=== PATIENT | female | born 1945 | race Caucasian/White ===

== ENCOUNTER 2019-01-25 15:01 | Observation (INO) | payer OTHER ==
[~2019-01-25] VITALS: Ht 160 cm; Wt 92.0 kg
[~2019-01-25 15:01] MED LIST: ACETAMINOPHEN500 MG PO; ALBU90OI61 INH; ALPR.25 PO; ALPR.5 PO; ALPR1 PO; ANORO ELLIPTA1 EACH INH; ASPI325; ASPI325EC PO; ASPI81CH PO; ATOR80 PO; Ativan0.5 MG PO; BACL10 PO; BENADRYL25 MG PO; BENZ100A PO; BUSP15 PO; Bactrim Ds Tab1 EACH PO; CARB200 PO; CARI350 PO; CLON1 PO; CLOP75 PO; Coumadin5 MG PO; DIAZEPAM; DULO60 PO; ERYSTE250 PO; FAMO20 PO; FAMO40 PO; FERRO-TIME325 MG PO; FLUO20; FLUO20 PO; FURO40 PO; HYDACE5 PO; IMODIUM MULTI-1 EAC1 PO; LISI5 PO; LOVASTATIN; METO25 PO; NAC600 MG PO; NITR.4SL SL; OMEP20ER PO; ONDA4 PO; OXYC10TA19 PO; Omeprazole20 M1 PO; PARI1 PO; Prozac20 MG; Prozac20 MG PO; QUET300 PO; RANI150 PO; ROSU10TA PO; SENN187 PO; TRAM50 PO; TRAZ100; TRAZ100 PO; TRAZ150T57 PO; Tamiflu30 MG PO; VITAMIN D22000 UNIT PO
[2019-01-25 15:43] LABS: Source, Urine Clean Catch
[2019-01-25 15:52] LABS: Appearance, Urine Hazy (Clear); Bilirubin, Urine Neg (Neg); Blood, Urine 1+ (Neg); Color, Urine Yellow (P-Yellow); Glucose Qualitative, Urine Neg (Neg); Ketones, Urine Neg (Neg); Leukocyte Esterase, Urine 3+ (Neg); Nitrite, Urine Pos (Neg); Protein, Urine 1+ (Neg); Specific Gravity, Urine 1.015 (1.003-1.022); Urobilinogen, Urine NORM (Normal)
[2019-01-25 16:13] LABS: U Amphetamine Screen Not Detected; U Barbituate Screen Not Detected; U Benzodiazapine Screen DETECTED; U Buprenorphine Screen Not Detected; U Cannabinoids Screen Not Detected; U Cocaine Screen Not Detected; U Methadone Screen Not Detected; U Methamphetamine Screen Not Detected; U Opiates Screen Not Detected; U Oxycodone Screen Not Detected; U Phencyclidine Screen Not Detected; U Propoxyphene Screen Not Detected
[2019-01-25 16:24] LABS: BASOPHILS ABSOLUTE AUTO 0.01 K/mm3 (0.00-0.23); BASOPHILS PERCENT AUTO 0 % (0-2); EOSINOPHILS ABSOLUTE AUTO 0.07 K/mm3 (0.00-0.68); EOSINOPHILS PERCENT AUTO 1 % (0-6); Hematocrit 38.3 % (33.0-51.0); Hemoglobin 11.7 g/dL (11.5-16.0); IMMATURE GRAN ABSOLUTE AUTO 0.01 K/mm3 (0.00-0.10); IMMATURE GRAN PERCENT AUTO 0 % (0-1); LYMPHOCYTES ABSOLUTE AUTO 1.21 K/mm3 (0.84-5.20); LYMPHOCYTES PERCENT AUTO 19 % (21-46); MONOCYTES ABSOLUTE AUTO 0.37 K/mm3 (0.16-1.47); MONOCYTES PERCENT AUTO 6 % (4-13); Mean Corpuscular HGB 27.9 pg (26.0-34.0); Mean Corpuscular HGB Conc 30.5 g/dL (31.5-36.5); Mean Corpuscular Volume 91 fL (80-100); Mean Platelet Volume 9.7 fL (9.1-12.4); NEUTROPHILS ABSOLUTE AUTO 4.73 K/mm3 (1.96-9.15); NEUTROPHILS PERCENT AUTO 74 % (41-73); Platelet Count 177 K/mm3 (150-400); RDW Coefficient Variation 13.4 % (11.7-14.2); RDW Standard Deviation 45.1 fL (35.1-46.3)
[2019-01-25 16:29] LABS: Bacteria Many /hpf; Squamous Epithelial Cells Few /hpf (Few); White Blood Cells, Urine 25-50 /hpf (0-5)
[2019-01-25 16:36] LABS: Alanine Aminotransfer (ALT/SGP 32 U/L (12-78); Albumin, Blood 3.5 g/dL (3.4-5.0); Albumin/Globulin Ratio 1.1 (0.8-1.8); Alk Phos 99 U/L (50-136); Anion Gap 4 mmol/L (6-16); Aspartate Aminotrans (AST/SGOT 25 U/L (12-37); Bilirubin, Total 0.4 mg/dL (0.1-1.0); Blood Urea Nitrogen 14 mg/dL (8-24); Bun/Creatinine Ratio 12.8 (12.0-20.0); CO2, Blood 31 mmol/L (21-32); CPK Creatine Kinase 200 U/L (26-193); Calcium, Blood 9.3 mg/dL (8.5-10.1); Chloride, Blood 108 mmol/L (98-108); Creatinine, Blood 1.09 mg/dL (0.40-1.00); Globulin, Blood 3.1 g/dL (2.2-4.0); Glomerular Filtration Rate 52 (60-); Glucose, Blood 87 mg/dL (70-99); Potassium, Blood 4.2 mmol/L (3.5-5.5); Sodium, Blood 143 mmol/L (136-145); Total Protein, Blood 6.6 g/dL (6.4-8.2); Troponin I <0.015 ng/mL (0.000-0.040)
[2019-01-25 16:40] LABS: Ethanol (Alcohol), Blood, Med <3 mg/dL
[2019-01-25 16:52] LABS: Creatine Kinase MB 3.5 ng/mL (0.0-3.6); Creatine Kinase MB Index 1.8 (0.0-4.0)
[2019-01-25] MEDS ORDERED: VENL150ER PO (19:21)
[2019-01-25] MEDS ORDERED: ATOR80 PO (19:21)
[2019-01-25] MEDS ORDERED: Ipratropium Bro15 ML (19:22)
[2019-01-25] MEDS ORDERED: ALPR1 PO (19:23)
--- NOTE | 2019-01-26 04:21 | NUR ---
VSS, AFEBRILE, A/O BUT SOMULENT AT TIMES, ARRIVED TO THE UNIT VIA W/C FROM ED, FOUND DOWN AT HOME BY NEIGHBOR, S/P FALL AT HOME, UTI, 20G R HAND, 1 PA TO BSC BECAUSE OF WEAKNESS, LIVES ALONE, NO SKIN ISSUES, SLEPT WELL, NO COMPLAINTS
[2019-01-26 05:15] LABS: Hematocrit 34.2 % (33.0-51.0); Mean Corpuscular HGB 27.5 pg (26.0-34.0); Mean Corpuscular HGB Conc 29.2 g/dL (31.5-36.5); Mean Platelet Volume 9.5 fL (9.1-12.4); Platelet Count 170 K/mm3 (150-400); RDW Coefficient Variation 13.6 % (11.7-14.2); RDW Standard Deviation 47.1 fL (35.1-46.3); Red Blood Cell Count 3.64 M/mm3 (3.80-5.20); White Blood Cell Count 4.02 K/mm3 (4.00-11.30)
[2019-01-26 05:36] LABS: Mean Corpuscular Volume 94 fL (80-100)
[2019-01-26 05:45] LABS: Bun/Creatinine Ratio 10.3 (12.0-20.0); Calcium, Blood 8.6 mg/dL (8.5-10.1); Creatinine, Blood 1.17 mg/dL (0.40-1.00); Potassium, Blood 3.6 mmol/L (3.5-5.5)
--- NOTE | 2019-01-26 12:40 | NUR ---
Echocardiogram completed.
--- NOTE | 2019-01-26 19:27 | NUR ---
SHIFT SUMMARY PT UP TO BATHROOM WITH FWW WITH 1 PERSON ASSIST TODAY. HAD AN EPISODE OF LOOSE STOOL. HAPPENED AFTER MIRALAX GIVEN. HAD A FEW EPISODES OF ANXIETY BUT WAS SELF RESOLVING. TOOK A NAP TODAY AND WOKE UP AND COULDN'T REMEMBER WHAT WAS HAPPENING AND THOUGHT IT WAS MORNING. REORIENTED AND DISCUSSED WHAT HAS BEEN HAPPENING. IV STARTED LEAKING AND MULTIPLE ATTEMPTS HAVE BEEN MADE. REPORTING TO ONCOMING SHIFT.
--- NOTE | 2019-01-27 05:21 | NUR ---
VSS, AFEBRILE, A/O, NEW IV IN L FA, PT HAD SEVERAL ATTEMPTS TO START A NEW IV ON DAY SHIFT W/OUT SUCCESS. THIS LEFT HER ANXIOUS, MEDICATED PER ORDER, PT CONTINUED TO BE ANXIOUS MOST OF THE NOC, DID NOT SLEEP WELL, C/O VAGUE FEELINGS OF ABANDONMENT AND NOT BEING GIVEN CORRECT MEDICATION, PT DENIES FAMILY OR FRIENDS TO SUPPORT HER. PT TEACHING ABOUT MEDICATIONS DONE MULTIPLE TIMES OVER THE NOC AT HER REQUEST, MIGHT BE LONELY.
--- NOTE | 2019-01-27 11:15 | NUR ---
NOTIFIED DR. PRATHER PT'S BP THIS AM WAS 186/76 AND HER BP IS 172/99 ABOUT AN HOUR AFTER HER AM MEDS. NO NEW ORDERS AT THIS TIME.
[2019-01-27] MEDS ORDERED: CEFU500T30 PO (11:57)
--- NOTE | 2019-01-27 15:50 | NUR ---
D/C INSTRUCTIONS PROVIDED AND EXPLAINED. IV AND TELE REMOVED. PT D/C VIA WHEELCHAIR WITH FRIENDS AND ROCK MASON APPRENTICE AT 1530 .
== END 2019-01-27 15:34 | disposition home health service (06) ==
LOC: ER 15:01 → MEDS 15:02 → ENPENDDIS 01-27 09:00 → MEDS 01-27 15:34
PROVIDERS: Physician Assistant; ADMIT Internal Medicine
DX: R55 Syncope and collapse (principal); I12.9 Hypertensive chronic kidney disease with stage 1 through stage 4 chronic kidney disease, or unspecified chronic kidney disease; N18.3 Chronic kidney disease, stage 3 (moderate); D63.1 Anemia in chronic kidney disease; N39.0 Urinary tract infection, site not specified; B96.20 Unspecified Escherichia coli [E. coli] as the cause of diseases classified elsewhere; I73.9 Peripheral vascular disease, unspecified; I65.23 Occlusion and stenosis of bilateral carotid arteries; I70.8 Atherosclerosis of other arteries; I25.10 Atherosclerotic heart disease of native coronary artery without angina pectoris; G31.84 Mild cognitive impairment of uncertain or unknown etiology; F41.9 Anxiety disorder, unspecified; F32.9 Major depressive disorder, single episode, unspecified; K21.9 Gastro-esophageal reflux disease without esophagitis; J44.9 Chronic obstructive pulmonary disease, unspecified; Z86.73 Personal history of transient ischemic attack (TIA), and cerebral infarction without residual deficits; E66.9 Obesity, unspecified; Z88.8 Allergy status to other drugs, medicaments and biological substances; Z88.0 Allergy status to penicillin; Z88.5 Allergy status to narcotic agent; Z79.899 Other long term (current) drug therapy; Z79.82 Long term (current) use of aspirin; Z87.891 Personal history of nicotine dependence; Z98.890 Other specified postprocedural states; Z85.118 Personal history of other malignant neoplasm of bronchus and lung; Z90.2 Acquired absence of lung [part of]; W18.30XA Fall on same level, unspecified, initial encounter
CPT/HCPCS: 36415; 70450; 71046; 72125; 73502; 80048; 80053; 81001; 82550; 82553; 84484; 85025; 85027; 87077; 87086; 87186; 93005; 93010; 93306; 93880; 96361; 96365; 96366; 96372; 97116; 97162; 97166; 97530; 97535; 99285-25; G0378; G0480; J0696; J1650; J7030; P9612

== ENCOUNTER → 2019-02-10 | Outpatient (CLI) | payer OTHER ==
[~2019-02-10] MED LIST changes: +CEFU500T30 PO; +Ipratropium Bro15 ML; +VENL150ER PO
[2019-02-10 19:29] LABS: Bilirubin, Urine Neg (Neg); Blood, Urine Neg (Neg); Glucose Qualitative, Urine Neg (Neg); Ketones, Urine Neg (Neg); Leukocyte Esterase, Urine 1+ (Neg); Nitrite, Urine Neg (Neg); Protein, Urine 1+ (Neg); Urobilinogen, Urine NORM (Normal)
[2019-02-10 20:01] LABS: Appearance, Urine Hazy (Clear); Color, Urine Yellow (P-Yellow)
[2019-02-10 20:07] LABS: Bacteria Few /hpf; Squamous Epithelial Cells Few /hpf (Few)
== END | disposition home or self-care (01) ==
LOC: LAB SHORT 19:13 → LAB 19:13
DX: N39.0 Urinary tract infection, site not specified (principal)
CPT/HCPCS: 81001; 87086

== ENCOUNTER 2019-05-11 16:09 | Emergency (ER) | payer OTHER ==
[~2019-05-11] VITALS: Ht 160 cm; Wt 90.7 kg
[~2019-05-11 16:09] MED LIST changes: -ANORO ELLIPTA1 EACH INH; -Omeprazole20 M1 PO
[2019-05-11 16:58] LABS: BASOPHILS ABSOLUTE AUTO 0.01 K/mm3 (0.00-0.23); BASOPHILS PERCENT AUTO 0 % (0-2); EOSINOPHILS ABSOLUTE AUTO 0.16 K/mm3 (0.00-0.68); EOSINOPHILS PERCENT AUTO 3 % (0-6); Hemoglobin 12.1 g/dL (11.5-16.0); IMMATURE GRAN ABSOLUTE AUTO 0.02 K/mm3 (0.00-0.10); IMMATURE GRAN PERCENT AUTO 0 % (0-1); LYMPHOCYTES ABSOLUTE AUTO 1.45 K/mm3 (0.84-5.20); LYMPHOCYTES PERCENT AUTO 28 % (21-46); MONOCYTES ABSOLUTE AUTO 0.33 K/mm3 (0.16-1.47); MONOCYTES PERCENT AUTO 6 % (4-13); Mean Corpuscular Volume 87 fL (80-100); Mean Platelet Volume 9.6 fL (9.1-12.4); NEUTROPHILS ABSOLUTE AUTO 3.31 K/mm3 (1.96-9.15); NEUTROPHILS PERCENT AUTO 63 % (41-73); Platelet Count 259 K/mm3 (150-400); RDW Coefficient Variation 13.7 % (11.7-14.2); RDW Standard Deviation 43.6 fL (35.1-46.3); Red Blood Cell Count 4.48 M/mm3 (3.80-5.20); White Blood Cell Count 5.28 K/mm3 (4.00-11.30)
[2019-05-11 17:17] LABS: Albumin, Blood 4.2 g/dL (3.4-5.0); Albumin/Globulin Ratio 1.4 (0.8-1.8); Bilirubin, Total 0.4 mg/dL (0.1-1.0); Bun/Creatinine Ratio 20.3 (12.0-20.0); Creatinine, Blood 1.23 mg/dL (0.40-1.00); Globulin, Blood 3.1 g/dL (2.2-4.0); Potassium, Blood 4.1 mmol/L (3.5-5.5); Total Protein, Blood 7.3 g/dL (6.4-8.2)
[2019-05-11] MEDS ORDERED: CETI5 PO (19:57)
[2019-05-11] MEDS ORDERED: ROSU10TA PO (19:59)
[2019-05-11] MEDS ORDERED: CYCL10 PO (23:32)
[2019-05-11] MEDS ORDERED: Voltaren100 GM TOP (23:32)
[2019-05-11] MEDS ORDERED: Roxicodone5 MG PO (23:32)
== END 2019-05-12 00:30 | disposition home or self-care (01) ==
LOC: ER 16:09
PROVIDERS: Physician Assistant
DX: M54.2 Cervicalgia (principal); Z88.0 Allergy status to penicillin; Z88.5 Allergy status to narcotic agent; Z88.8 Allergy status to other drugs, medicaments and biological substances; Z79.899 Other long term (current) drug therapy; Z79.52 Long term (current) use of systemic steroids; J44.9 Chronic obstructive pulmonary disease, unspecified; F41.9 Anxiety disorder, unspecified; Z86.73 Personal history of transient ischemic attack (TIA), and cerebral infarction without residual deficits; Z87.891 Personal history of nicotine dependence; Z85.118 Personal history of other malignant neoplasm of bronchus and lung
CPT/HCPCS: 36415; 70498; 80053; 85025; 93005; 93010; 94640; 96361-59; 96374-59; 96375-59; 99284-25; A9270; J1170; J3010; J7030; Q9967

== ENCOUNTER 2019-06-26 20:37 | Observation (INO) | payer OTHER ==
[~2019-06-26] VITALS: Ht 170.2 cm; Wt 91.9 kg
[~2019-06-26 20:37] MED LIST changes: +CETI5 PO; +CYCL10 PO; +Roxicodone5 MG PO; +Voltaren100 GM TOP
[2019-06-26] MEDS ORDERED: MONT10T PO (21:14)
[2019-06-26] MEDS ORDERED: Omeprazole20 M1 PO (21:14)
[2019-06-26] MEDS ORDERED: ANORO ELLIPTA1 EACH INH ×2 (21:15→23:34)
[2019-06-26] MEDS ORDERED: ALBU2.5V5 NEB (21:15)
[2019-06-26 21:16] LABS: BASOPHILS ABSOLUTE AUTO 0.02 K/mm3 (0.00-0.23); BASOPHILS PERCENT AUTO 0 % (0-2); EOSINOPHILS ABSOLUTE AUTO 0.13 K/mm3 (0.00-0.68); EOSINOPHILS PERCENT AUTO 2 % (0-6); Hematocrit 39.1 % (33.0-51.0); Hemoglobin 12.4 g/dL (11.5-16.0); IMMATURE GRAN ABSOLUTE AUTO 0.03 K/mm3 (0.00-0.10); IMMATURE GRAN PERCENT AUTO 0 % (0-1); LYMPHOCYTES ABSOLUTE AUTO 1.28 K/mm3 (0.84-5.20); LYMPHOCYTES PERCENT AUTO 17 % (21-46); MONOCYTES ABSOLUTE AUTO 0.54 K/mm3 (0.16-1.47); MONOCYTES PERCENT AUTO 7 % (4-13); Mean Corpuscular HGB 27.8 pg (26.0-34.0); Mean Corpuscular HGB Conc 31.7 g/dL (31.5-36.5); Mean Corpuscular Volume 88 fL (80-100); NEUTROPHILS ABSOLUTE AUTO 5.54 K/mm3 (1.96-9.15); NEUTROPHILS PERCENT AUTO 73 % (41-73); Platelet Count 211 K/mm3 (150-400); RDW Coefficient Variation 13.9 % (11.7-14.2); RDW Standard Deviation 44.8 fL (35.1-46.3); Red Blood Cell Count 4.46 M/mm3 (3.80-5.20); White Blood Cell Count 7.54 K/mm3 (4.00-11.30)
[2019-06-26] MEDS ORDERED: CLOP75 PO (21:17)
[2019-06-26] MEDS ORDERED: ALBU90OI61 INH (21:17)
[2019-06-26] MEDS ORDERED: ALPR.25 PO (21:18)
[2019-06-26] MEDS ORDERED: ALPR.5 PO (21:20)
[2019-06-26] MEDS ORDERED: PARI1 PO (21:21)
[2019-06-26] MEDS ORDERED: CYCL0.05OP BOTHEYES (21:22)
[2019-06-26] MEDS ORDERED: PRED FORTE5 ML BOTHEYES (21:23)
[2019-06-26] MEDS ORDERED: OLOPATADINE HC2.5 ML BOTHEYES (21:24)
[2019-06-26] MEDS ORDERED: ROSUVASTATIN CA20 MG PO (21:25)
[2019-06-26] MEDS ORDERED: Ipratropium Bro15 ML (21:27)
[2019-06-26 21:29] LABS: Troponin I <0.015 ng/mL (0.000-0.040)
[2019-06-26 21:52] LABS: Alanine Aminotransfer (ALT/SGP 30 U/L (12-78); Albumin, Blood 3.7 g/dL (3.4-5.0); Albumin/Globulin Ratio 1.2 (0.8-1.8); Alk Phos 100 U/L (50-136); Anion Gap 8 mmol/L (6-16); Aspartate Aminotrans (AST/SGOT 17 U/L (12-37); Bilirubin, Total 0.4 mg/dL (0.1-1.0); Blood Urea Nitrogen 26 mg/dL (8-24); Bun/Creatinine Ratio 20.5 (12.0-20.0); CO2, Blood 23 mmol/L (21-32); Calcium, Blood 9.2 mg/dL (8.5-10.1); Chloride, Blood 109 mmol/L (98-108); Creatinine, Blood 1.27 mg/dL (0.40-1.00); Glomerular Filtration Rate 43 (60-); Glucose, Blood 137 mg/dL (70-99); Potassium, Blood 4.1 mmol/L (3.5-5.5); Sodium, Blood 140 mmol/L (136-145); Total Protein, Blood 6.7 g/dL (6.4-8.2)
[2019-06-26] MEDS ORDERED: LORATADINE-D 11 EACH PO (21:52)
[2019-06-26] MEDS ORDERED: CLARITIN10 MG PO (23:45)
--- NOTE | 2019-06-27 | NUR ---
ADMISSION PT ARRIVES TO PCU 5 @ APPROXIMATELY 2320. PT IS AOX4. VSS. AMBULATES FROM ER STRETCHER TO HOSPITAL BED WITH STANDBY ASSIST. LUNG SOUNDS ARE CLEAR IN UPPER LOBES WITH SLIGHTLY DIMINISHED BASES. O2 SATS CURRENTLY 95% ON RA. PT REPORTING MILD DYSPNEA, BUT REPORTS SIGNIFICANT IMPROVEMENT FROM EARLIER IN THE EVENING. CARDIZEM DRIP INFUSING AT 5 MG/HR UPON ARRIVAL. PT IS CURRENTLY IN NORMAL SINUS RHYTHM WITH RATE OF 88 PER TELEMETRY. SOLE RUFFER SPOKE WITH PHYSICIAN ABOUT CONVERSION AND VERBAL INSTRUCTIONS WERE TO CONTINUE CARDIZEM DRIP PER PROTOCOL UPON ADMISSION. PT APPEARS TO BE MILDLY ANXIOUS UPON ARRIVAL. REPORTS THAT SHE LIVES IN AN APARTMENT ALONE AND IS ABLE TO CARE FOR HERSELF WITHOUT DIFFICULTY. PT ORIENTED TO ROOM AND CALL LIGHT SYSTEM AND ENCOURAGED TO CALL FOR ASSISTANCE WITH AMBULATION AND CARE. PT EDUCATED ON CURRENT ILLNESS AND NEW MEDICATIONS SHE IS RECEIVING FOR CURRENT CONDITION. WILL CONTINUE WITH ADMISSION AND MONITORING. BED IN LOW POSIITION, CALL LIGHT IN REACH.
[2019-06-27 00:43] LABS: Source, Urine Clean Catch
[2019-06-27 00:46] LABS: Appearance, Urine Clear (Clear); Bilirubin, Urine Neg (Neg); Blood, Urine Neg (Neg); Color, Urine Yellow (P-Yellow); Glucose Qualitative, Urine Neg (Neg); Ketones, Urine Neg (Neg); Leukocyte Esterase, Urine 1+ (Neg); Nitrite, Urine Neg (Neg); Protein, Urine Neg (Neg); Specific Gravity, Urine 1.015 (1.003-1.022); Urobilinogen, Urine NORM (Normal); pH, Urine 6.5 (5.0-8.0)
[2019-06-27 00:53] LABS: Bacteria Mod /hpf; Red Blood Cells, Urine 0-2 /hpf (0-2); Squamous Epithelial Cells Rare /hpf (Few)
[2019-06-27 04:31] LABS: Hematocrit 39.1 % (33.0-51.0); Hemoglobin 12.3 g/dL (11.5-16.0); Mean Corpuscular HGB 27.5 pg (26.0-34.0); Mean Corpuscular HGB Conc 31.5 g/dL (31.5-36.5); Mean Corpuscular Volume 87 fL (80-100); Mean Platelet Volume 10.7 fL (9.1-12.4); Platelet Count 176 K/mm3 (150-400); RDW Coefficient Variation 14.2 % (11.7-14.2); RDW Standard Deviation 45.1 fL (35.1-46.3); Red Blood Cell Count 4.48 M/mm3 (3.80-5.20); White Blood Cell Count 6.21 K/mm3 (4.00-11.30)
[2019-06-27 05:02] LABS: Albumin, Blood 3.6 g/dL (3.4-5.0); Albumin/Globulin Ratio 1.1 (0.8-1.8); Bilirubin, Total 0.7 mg/dL (0.1-1.0); Calcium, Blood 8.8 mg/dL (8.5-10.1); Creatinine, Blood 1.09 mg/dL (0.40-1.00); Globulin, Blood 3.4 g/dL (2.2-4.0)
--- NOTE | 2019-06-27 05:17 | NUR ---
PROVIDER CONTACTED PT WITH CRITICAL HIGH POTASSIUM THIS AM OF 6.0. DR SERVIN CONTACTED AND REPORTS THAT HE WILL LOOK AT LABS AND INPUT ORDERS.
--- NOTE | 2019-06-27 06:10 | NUR ---
SHIFT SUMMARY PT HAS REMAINED AOX4 THROUGHOUT SHIFT. VSS. PLEASANT AND COOPERATIVE WITH CARE. CARDIAC RHYTHM HAS REMAINED IN NORMAL SINUS SINCE CONVERSION LAST NIGHT PRIOR TO ARRIVAL IN PCU. CARDIZEM DRIP HAS REMAINED ON STTANDBY SINCE 0130 THIS AM. PT DENIES CHEST PAIN. REPORTS SOME DYSPNEA, THAT REMAINS IMPROVED SINCE CARDIAC CONVERSION. O2 SATS HAVE REMAINED >90% ON RA THROUGHOUT THE NIGHT. PT WITH CRITICALLY HIGH POTASSIUM THIS AM- TREATED WITH GLUCOSE, IV INSULIN AND CALCIUM GLUCONATE- REPEAT LAB TO BE DRAWN @ 0900 THIS AM. PT CONTINUES TO AMBULATE WITH STANDBY ASSIST IN ROOM WITHOUT DIFFICULTY. NO OTHER CHANGES NOTED FROM INITIAL ASSESSMENT. WILL CONTINUE TO MONITOR AND REPORT TO ONCOMING SHIFT RN. BED IN LOW POSITION, CALL LIGHT IN REACH.
--- NOTE | 2019-06-27 07:45 | NUR ---
AM NOTE. ASSUMED CARE OF PT APROX 0700. PT A&Ox4 AND IND/SBA IN THE ROOM. PT WAS ADMITTED FOR AFIB RVR BUT IS CURRENTLY IN NSR IN THE 70'S-80'S PER DYE RANGE FEEDER AND HAS BEEN SINCE ADMIT. PT DENIES ANY CHEST PAIN/PRESSURE, N/V BUT HAS SOB WITH ACTIVITY. PT'S OTHER VS STABLE AT THIS TIME. ECHO IS SCHEDULED FOR THIS AM. PT HAS HX OF PREVIOUS SENT PLACEMENTS 3 YEARS AGO PER PT. CALL LIGHT IN REACH, BED IS LOCKED AND LOW WILL CONTINUE TO MONITOR.
[2019-06-27 09:56] LABS: Bun/Creatinine Ratio 21.1 (12.0-20.0); Creatinine, Blood 0.99 mg/dL (0.40-1.00); Potassium, Blood 4.8 mmol/L (3.5-5.5)
--- NOTE | 2019-06-27 18:01 | NUR ---
SHIFT SUMMARY. NO ACUTE CHANGES NOTED THIS SHIFT. PT IS VERY ANXIOUS ABOUT D/C'ING HOME, PT STATES "I JUST DON'T FEEL GOOD." PT'S VS HAVE BEEN STABLE T/O SHIFT. PT HAS HAD SEVERAL EPISODES OF ANXIETY THAT HAS CAUSED PT TO BECOME SBO AND HAVE INCREASED ANXEITY. PT STATES SHE HAS CHEST PAIN WITH DEEP INSPIRATION DURING THESE EPISODES. PT HAS BEEN IN NSR ALL SHIFT WITH NO TELE CHANGES NOTED. PT HAS BEEN ON RA T/O SHIFT WITH O2 SAT >90% CALL LIGHT IN REACH, BED IS LOCKED AND LOW WILL CONTINUE TO MONITOR UNTIL REPORT IS GIVEN TO ONCOMING RN.
--- NOTE | 2019-06-28 | NUR ---
ASSUMED CARE PT CARE ASSUMED FROM EVERTON AVELAR @ APPROXIMATELY 0000. PT IS CURRENTLY RESTING IN BED QUIETLY WITH RESPIRATIONS EVEN AND UNLABORED. PT APPEARS TO BE SLEEPING WELL. CURRENT CARDIAC RHYTHM IS NORMAL SINUS WITH A RATE IN THE 90'S PER TELEMETRY. MOST RECENT VITAL SIGNS WITH 02 SATS >90% ON RA. WILL CONTINUE WITH MONITORING. BED IN LOW POSITION, CALL LIGHT IN REACH.
--- NOTE | 2019-06-28 00:19 | NUR ---
Assumed care of pt at approx 1900. VSS. pt breathing easy and unlabored. Pt conversing appropriately, alert and oriented, uses call light appropriately, makes needs known. Pt with moderate anxiety related to not knowing medications, this RN educated pt on all medications this RN gave. Pt verbalized understanding. See shift assessment for detailed systems assessment. No changes from initial assessment. Report given to EVERTON Osullivan to assume care at this time.
[2019-06-28 04:48] LABS: Bun/Creatinine Ratio 18.8 (12.0-20.0); Calcium, Blood 9.7 mg/dL (8.5-10.1); Creatinine, Blood 1.12 mg/dL (0.40-1.00); Potassium, Blood 4.2 mmol/L (3.5-5.5)
--- NOTE | 2019-06-28 05:00 | NUR ---
ANXIOUS EPISODE/EKG PERFORMED PT WITH PERIOD OF CHEST PAIN AND ANXIETY THIS AM WITH CARDIAC RHYTHM SHOWING FREQUENT PAC'S. PT REPORTS FEELING SOME FLUTTERING IN CHEST WITH PAIN IN CHEST THAT RADIATES TO ARM WITH PAIN LEVEL OF 5/10. PT DENIES CHEST PRESSURE OR HEAVINESS. EKG PERFORMED AND SHOWS SINUS RHYTHM WITH PAC'S AND A RATE OF 116. PT ENCOURAGED TO UTILIZE RELAXATION BREATHING TECHNIQUES THAT HELPED TO DECREASE ANXIETY. AFTER TWO MINUTES OF PURSED LIP BREATHING, PT REPORTS DECREASED PAIN AT A 2/10 WITH NO MORE RADIATION. HEART RATE DECREASED TO 103 AND NO FURTHER NOTED FREQUENT PAC'S ON TELEMETRY. PT REPORTS THAT SHE HAS HAD EPISODES LIKE THIS IN THE PAST. WILL CONTINUE TO MONITOR AND ASSESS.
--- NOTE | 2019-06-28 06:26 | NUR ---
SHIFT SUMMARY PT HAS REMAINED AOX4 THROUGHOUT SHIFT. VSS. PLEASANT AND COOPERATIVE WITH CARE. NO FURTHER NOTED PERIODS OF CHEST PAIN OR ANXIETY FROM EPISODE EARLIER THIS AM. O2 SATS HAVE REMAINED >90% ON RA. PT PROVIDED WITH EXTENSIVE EDUCATION ON CURRENT ILLNESS AND TREATMENTS BEING PROVIDED. PT REQUIRES FREQUENT REITERATION OF EDUCATION AND REASSURANCE OF HEALTH STATUS. PT IS CURRENTLY RESTING IN BED WITH EVEN, UNLABORED RESPIRATIONS AND APPEARS TO BE RESTING COMFORTABLY. NO OTHER CHANGES NOTED FROM INITIAL ASSESSMENT. WILL CONTINUE TO MONITOR AND REPORT TO ONCOMING SHIFT RN. BED IN LOW POSITION, CALL LIGHT IN REACH.
--- NOTE | 2019-06-28 07:59 | NUR ---
AM NOTE. ASSUMED CARE OF PT APROX 0700. PT IS A&Ox4 AND IND IN THE ROOM. PT'S HR AND BP HAS INCREASED OVER NIGHT, PT IS IN SINUS TACH WITH PACS. PT DENIES CHEST PAIN/PRESSURE AT THIS TIME. PT BECOMES VERY ANXIOUS WHEN TALKING ABOUT HER FATEMEH ISSUES, HEART RATE AND BP AT THIS TIME. 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 PT WILL MOST LIKELY D/C HOME TODAY. WILL CONTINUE TO MONITOR.
[2019-06-28] MEDS ORDERED: DILT30 PO (12:34)
[2019-06-28] MEDS ORDERED: ATROVENT (12:40)
[2019-06-28] MEDS ORDERED: DILTIAZEM 24HR120 MG PO (12:42)
[2019-06-28] MEDS ORDERED: ELIQUIS5 MG PO (12:43)
[2019-06-28] MEDS ORDERED: ASPI81CH PO (12:44)
== END 2019-06-28 14:30 | disposition home or self-care (01) ==
LOC: ER 20:37 → PCU 22:34
PROVIDERS: Emergency Medicine; Internal Medicine; ADMIT Internal Medicine
DX: I48.0 Paroxysmal atrial fibrillation (principal); J44.1 Chronic obstructive pulmonary disease with (acute) exacerbation; T48.6X5A Adverse effect of antiasthmatics, initial encounter; I25.10 Atherosclerotic heart disease of native coronary artery without angina pectoris; E87.5 Hyperkalemia; E66.9 Obesity, unspecified; I12.9 Hypertensive chronic kidney disease with stage 1 through stage 4 chronic kidney disease, or unspecified chronic kidney disease; N18.3 Chronic kidney disease, stage 3 (moderate); D63.1 Anemia in chronic kidney disease; F41.9 Anxiety disorder, unspecified; Z86.73 Personal history of transient ischemic attack (TIA), and cerebral infarction without residual deficits; Z85.118 Personal history of other malignant neoplasm of bronchus and lung; Z79.02 Long term (current) use of antithrombotics/antiplatelets; Z79.899 Other long term (current) drug therapy; Z87.891 Personal history of nicotine dependence; Z68.31 Body mass index [BMI] 31.0-31.9, adult
CPT/HCPCS: 36415; 71045; 80048; 80053; 81001; 83735; 83880; 84484; 85025; 85027; 87086; 93005; 93010; 93306; 94640; 94760; 96365; 96366; 96372; 96375; 96376; 99285-25; G0378; J0610; J1650; J1815; J2930; J7799

== ENCOUNTER → 2019-07-04 | Outpatient (CLI) | payer SELFPAY ==
[~2019-07-04] MED LIST changes: +ALBU2.5V5 NEB; +ANORO ELLIPTA1 EACH INH; +ATROVENT; +CLARITIN10 MG PO; +CYCL0.05OP BOTHEYES; +DILT30 PO; +DILTIAZEM 24HR120 MG PO; +ELIQUIS5 MG PO; +Floxin10 ML RIGHTEAR; +HYDR1TAB94 PO; +LORATADINE-D 11 EACH PO; +MONT10T PO; +NEOPOLHCSU RIGHTEAR; +OLOPATADINE HC2.5 ML BOTHEYES; +Omeprazole20 M1 PO; +PRED FORTE5 ML BOTHEYES; +Percocet 5-3251 EACH PO; +ROSUVASTATIN CA20 MG PO
== END ==
LOC: LAB EV 17:36 → LAB SHORT 17:36
DX: N39.0 Urinary tract infection, site not specified (principal)
CPT/HCPCS: 87086

== ENCOUNTER 2019-08-20 14:53 | Emergency (ER) | payer OTHER ==
[~2019-08-20] VITALS: Ht 160 cm; Wt 90.7 kg
[~2019-08-20 14:53] MED LIST changes: -Floxin10 ML RIGHTEAR; -HYDR1TAB94 PO; -NEOPOLHCSU RIGHTEAR; -Percocet 5-3251 EACH PO
[2019-08-20] MEDS ORDERED: Floxin10 ML RIGHTEAR (15:58)
[2019-08-20] MEDS ORDERED: HYDR1TAB94 PO (15:58)
== END 2019-08-20 16:08 | disposition home or self-care (01) ==
LOC: ER 14:53
DX: H60.91 Unspecified otitis externa, right ear (principal); F41.9 Anxiety disorder, unspecified; R06.4 Hyperventilation; Z86.73 Personal history of transient ischemic attack (TIA), and cerebral infarction without residual deficits; Z85.118 Personal history of other malignant neoplasm of bronchus and lung; Z87.891 Personal history of nicotine dependence; Z88.0 Allergy status to penicillin; Z88.5 Allergy status to narcotic agent; Z88.8 Allergy status to other drugs, medicaments and biological substances; Z79.899 Other long term (current) drug therapy; Z79.01 Long term (current) use of anticoagulants; Z79.82 Long term (current) use of aspirin
CPT/HCPCS: 99282; A9270-GY

== ENCOUNTER 2019-08-23 16:30 | Emergency (ER) | payer OTHER ==
[~2019-08-23] VITALS: Ht 160 cm; Wt 90.7 kg
[~2019-08-23 16:30] MED LIST changes: +Floxin10 ML RIGHTEAR; +HYDR1TAB94 PO
[2019-08-23] MEDS ORDERED: Percocet 5-3251 EACH PO (17:33)
== END 2019-08-23 18:02 | disposition home or self-care (01) ==
LOC: ER 16:30
DX: H60.91 Unspecified otitis externa, right ear (principal); H72.91 Unspecified perforation of tympanic membrane, right ear; Z88.0 Allergy status to penicillin; Z88.5 Allergy status to narcotic agent; Z88.8 Allergy status to other drugs, medicaments and biological substances; Z79.899 Other long term (current) drug therapy; Z79.82 Long term (current) use of aspirin; E66.9 Obesity, unspecified; I12.9 Hypertensive chronic kidney disease with stage 1 through stage 4 chronic kidney disease, or unspecified chronic kidney disease; N18.9 Chronic kidney disease, unspecified; K21.9 Gastro-esophageal reflux disease without esophagitis; J44.9 Chronic obstructive pulmonary disease, unspecified; Z86.73 Personal history of transient ischemic attack (TIA), and cerebral infarction without residual deficits; Z87.891 Personal history of nicotine dependence
CPT/HCPCS: 99282

== ENCOUNTER 2019-08-25 19:28 | Emergency (ER) | payer OTHER ==
[~2019-08-25] VITALS: Ht 160 cm; Wt 90.7 kg
[~2019-08-25 19:28] MED LIST changes: +Percocet 5-3251 EACH PO
[2019-08-25] MEDS ORDERED: NEOPOLHCSU RIGHTEAR (21:39)
== END 2019-08-25 21:57 | disposition home or self-care (01) ==
LOC: ER 19:28
DX: H60.91 Unspecified otitis externa, right ear (principal); Z88.0 Allergy status to penicillin; Z88.5 Allergy status to narcotic agent; Z88.8 Allergy status to other drugs, medicaments and biological substances; Z79.899 Other long term (current) drug therapy; Z79.82 Long term (current) use of aspirin; I25.10 Atherosclerotic heart disease of native coronary artery without angina pectoris; E66.9 Obesity, unspecified; I12.9 Hypertensive chronic kidney disease with stage 1 through stage 4 chronic kidney disease, or unspecified chronic kidney disease; N18.9 Chronic kidney disease, unspecified; J44.9 Chronic obstructive pulmonary disease, unspecified; Z86.73 Personal history of transient ischemic attack (TIA), and cerebral infarction without residual deficits; Z87.891 Personal history of nicotine dependence; Z85.118 Personal history of other malignant neoplasm of bronchus and lung
CPT/HCPCS: 99282

== ENCOUNTER 2019-12-19 15:21 | Emergency (ER) | payer OTHER ==
[~2019-12-19] VITALS: Ht 160 cm; Wt 90.7 kg
[~2019-12-19 15:21] MED LIST changes: +NEOPOLHCSU RIGHTEAR
[2019-12-19 16:06] LABS: BASOPHILS ABSOLUTE AUTO 0.02 K/mm3 (0.00-0.23); BASOPHILS PERCENT AUTO 0 % (0-2); EOSINOPHILS ABSOLUTE AUTO 0.09 K/mm3 (0.00-0.68); EOSINOPHILS PERCENT AUTO 2 % (0-6); Hematocrit 37.7 % (33.0-51.0); Hemoglobin 11.3 g/dL (11.5-16.0); IMMATURE GRAN ABSOLUTE AUTO 0.02 K/mm3 (0.00-0.10); IMMATURE GRAN PERCENT AUTO 0 % (0-1); LYMPHOCYTES PERCENT AUTO 19 % (21-46); MONOCYTES ABSOLUTE AUTO 0.35 K/mm3 (0.16-1.47); MONOCYTES PERCENT AUTO 6 % (4-13); Mean Corpuscular HGB 25.3 pg (26.0-34.0); Mean Corpuscular Volume 85 fL (80-100); Mean Platelet Volume 9.8 fL (9.1-12.4); NEUTROPHILS ABSOLUTE AUTO 4.09 K/mm3 (1.96-9.15); NEUTROPHILS PERCENT AUTO 72 % (41-73); Platelet Count 216 K/mm3 (150-400); Red Blood Cell Count 4.46 M/mm3 (3.80-5.20); White Blood Cell Count 5.67 K/mm3 (4.00-11.30)
[2019-12-19 16:33] LABS: Alanine Aminotransfer (ALT/SGP 30 U/L (12-78); Albumin, Blood 3.7 g/dL (3.4-5.0); Albumin/Globulin Ratio 1.2 (0.8-1.8); Alk Phos 103 U/L (50-136); Anion Gap 4 mmol/L (6-16); Aspartate Aminotrans (AST/SGOT 18 U/L (12-37); Bilirubin, Total 0.5 mg/dL (0.1-1.0); Blood Urea Nitrogen 17 mg/dL (8-24); Bun/Creatinine Ratio 12.6 (12.0-20.0); CO2, Blood 27 mmol/L (21-32); Calcium, Blood 9.2 mg/dL (8.5-10.1); Chloride, Blood 105 mmol/L (98-108); Creatinine, Blood 1.35 mg/dL (0.40-1.00); Globulin, Blood 3.2 g/dL (2.2-4.0); Glomerular Filtration Rate 40 (60-); Glucose, Blood 100 mg/dL (70-99); Sodium, Blood 136 mmol/L (136-145); Total Protein, Blood 6.9 g/dL (6.4-8.2); Troponin I <0.015 ng/mL (0.000-0.040)
[2019-12-19] MEDS ORDERED: DEXT30SU PO (18:53)
[2019-12-19] MEDS ORDERED: Vibramycin100 MG PO (18:53)
== END 2019-12-19 19:33 | disposition home or self-care (01) ==
LOC: ER 15:21
PROVIDERS: Physician Assistant
DX: J18.9 Pneumonia, unspecified organism (principal); I12.9 Hypertensive chronic kidney disease with stage 1 through stage 4 chronic kidney disease, or unspecified chronic kidney disease; N18.9 Chronic kidney disease, unspecified; F41.9 Anxiety disorder, unspecified; I25.10 Atherosclerotic heart disease of native coronary artery without angina pectoris; J44.9 Chronic obstructive pulmonary disease, unspecified; D64.9 Anemia, unspecified; Z86.73 Personal history of transient ischemic attack (TIA), and cerebral infarction without residual deficits; K21.9 Gastro-esophageal reflux disease without esophagitis; Z87.891 Personal history of nicotine dependence; Z88.0 Allergy status to penicillin; Z88.5 Allergy status to narcotic agent; Z88.8 Allergy status to other drugs, medicaments and biological substances; Z79.51 Long term (current) use of inhaled steroids; Z79.899 Other long term (current) drug therapy; Z79.82 Long term (current) use of aspirin
CPT/HCPCS: 36415; 71046; 80053; 84484; 85025; 85379; 93005; 93010; 99284-25

== ENCOUNTER → 2020-03-13 | Outpatient (CLI) | payer OTHER ==
[~2020-03-13] MED LIST changes: +DEXT30SU PO; +Vibramycin100 MG PO
== END | disposition home or self-care (01) ==
LOC: LAB SHORT 08:46 → PLD 08:46
DX: L30.8 Other specified dermatitis (principal)
CPT/HCPCS: 88305; 88312

== ENCOUNTER → 2020-05-07 | Outpatient (CLI) | payer OTHER | END | disposition home or self-care (01) | LOC: PLD 07:51 → LAB SHORT 07:51 | DX: D23.62 Other benign neoplasm of skin of left upper limb, including shoulder (principal) | CPT/HCPCS: 88305 ==

== ENCOUNTER 2020-07-23 07:18 | Day surgery (SDC) | payer OTHER ==
[~2020-07-23] VITALS: Ht 160 cm; Wt 90.0 kg
[~2020-07-23 07:18] MED LIST changes: +BETA.05TCA TOP; +FURO20 PO; +POTCHL20ER PO; +SERT25 PO
--- NOTE | 2020-07-23 10:08 | NUR ---
PT BACK TO RECOVERY ROOM. PT WITH R ULNAR ACCESS SITE. TR BAND IN PLACE, NO BLEEDING, OOZING OR HEMATOMA NOTED. PT AOX4, DENIES ANY PAIN. PT SITTING UP EATING BREAKFAST. VSS. WILL CONTINUE TO MONITOR
--- NOTE | 2020-07-23 10:48 | NUR ---
PT TOLERATES PO FLUIDS/FOOD WITH NO DIFFICULTIES. TR BAND REMAINS ON RIGHT WRIST, WITH AIR IN, SITE APPEARS TO BE SOFT NON TENDER WITH NO ACTIVE BLEEDING, OOZING, OR PAIN NOTED TO ULNAR ARTERIAL SITE. DENIES PAIN. CALL LIGHT IN REACH. WILL CONTINUE TO MONITOR.
--- NOTE | 2020-07-23 12:01 | NUR ---
TR BAND FULLY DEFLATED ON RIGHT WRIST, ARM BOARD REMAINS ON FOR SUPPORT. SITE APPEARS TO BE SOFT NON TENDER, NO BLEEDING. PT PREVIOUSLY RESTING WITH EYES CLOSED, NO COMPLAINTS. CALL LIGHT IN REACH.
--- NOTE | 2020-07-23 13:01 | NUR ---
DISCHARGE PT AMBULATED TO RESTROOM AND DRESSED SELF WITH NO COMPLICATIONS. PT IS ABLE TO SPEAK IN FULL SENTENCES AND RECALL INFORMATION. PT DENIES ANY PAIN. VSS. TR BAND REMOVED, NO BLEEDING, OOZING OR HEMATOMA NOTED. SITE CLEANED AND CLOTH DOT DRESSING APPLIED. WHITE BOARD PLACED BACK ON ARM AND ARM PLACED IN SLING. IV DCD WITH CATH INTACT. PT STATES HER UNDERSTANDING OF SITE CARE AND DISCHARGE INSTRUCTIONS AND DENIES ANY QUESTIONS OR CONCERNS. INSTRUCTIONS ALSO REVIEW WITH SUNDAY, PT FRIEND, WHO ALSO DENIES ANY QUESTIONS OR CONCERNS. PT TAKEN TO EXIT VIA WHEELCHAIR.
== END 2020-07-23 13:00 | disposition home or self-care (01) ==
LOC: MHTC 07:18
PROC: 4A023N7 Measurement of Cardiac Sampling and Pressure, Left Heart, Percutaneous Approach (ICD-10-PCS; principal; 2020-07-23)
PROC: B201YZZ Plain Radiography of Multiple Coronary Arteries using Other Contrast (ICD-10-PCS; principal; 2020-07-23)
DX: I25.119 Atherosclerotic heart disease of native coronary artery with unspecified angina pectoris (principal); T82.855A Stenosis of coronary artery stent, initial encounter; Y83.1 Surgical operation with implant of artificial internal device as the cause of abnormal reaction of the patient, or of later complication, without mention of misadventure at the time of the procedure; E66.9 Obesity, unspecified; E78.00 Pure hypercholesterolemia, unspecified; E78.5 Hyperlipidemia, unspecified; I12.9 Hypertensive chronic kidney disease with stage 1 through stage 4 chronic kidney disease, or unspecified chronic kidney disease; N18.3 Chronic kidney disease, stage 3 (moderate); J44.9 Chronic obstructive pulmonary disease, unspecified; Z88.0 Allergy status to penicillin; Z88.8 Allergy status to other drugs, medicaments and biological substances; Z87.891 Personal history of nicotine dependence; Z79.82 Long term (current) use of aspirin; Z66 Do not resuscitate; Z79.01 Long term (current) use of anticoagulants; Z79.899 Other long term (current) drug therapy; Z88.5 Allergy status to narcotic agent; Z68.36 Body mass index [BMI] 36.0-36.9, adult; I08.0 Rheumatic disorders of both mitral and aortic valves; J38.00 Paralysis of vocal cords and larynx, unspecified; I65.22 Occlusion and stenosis of left carotid artery; Z86.73 Personal history of transient ischemic attack (TIA), and cerebral infarction without residual deficits; F43.10 Post-traumatic stress disorder, unspecified; Z85.118 Personal history of other malignant neoplasm of bronchus and lung; I48.0 Paroxysmal atrial fibrillation
CPT/HCPCS: 76937; 93454; 99152; 99153; C1769; C1894; J1644; J2250; J3010; J7030; Q9967

== ENCOUNTER 2020-08-19 19:17 | Emergency (ER) | payer OTHER ==
[~2020-08-19] VITALS: Ht 160 cm; Wt 88.9 kg
== END 2020-08-19 21:18 | disposition home or self-care (01) ==
LOC: ER 19:17
DX: S61.011A Laceration without foreign body of right thumb without damage to nail, initial encounter (principal); I25.10 Atherosclerotic heart disease of native coronary artery without angina pectoris; I10 Essential (primary) hypertension; K21.9 Gastro-esophageal reflux disease without esophagitis; J44.9 Chronic obstructive pulmonary disease, unspecified; F41.9 Anxiety disorder, unspecified; Z86.73 Personal history of transient ischemic attack (TIA), and cerebral infarction without residual deficits; Z79.01 Long term (current) use of anticoagulants; Z79.899 Other long term (current) drug therapy; Z88.0 Allergy status to penicillin; Z87.891 Personal history of nicotine dependence; Z88.8 Allergy status to other drugs, medicaments and biological substances; W45.8XXA Other foreign body or object entering through skin, initial encounter; Y93.G1 Activity, food preparation and clean up
CPT/HCPCS: 12001; 99282-25

== ENCOUNTER 2020-09-06 12:41 | Emergency (ER) | payer OTHER ==
[~2020-09-06] VITALS: Ht 160 cm; Wt 86.2 kg
[2020-09-06 14:36] LABS: BASOPHILS ABSOLUTE AUTO 0.01 K/mm3 (0.00-0.23); BASOPHILS PERCENT AUTO 0 % (0-2); EOSINOPHILS ABSOLUTE AUTO 0.11 K/mm3 (0.00-0.68); EOSINOPHILS PERCENT AUTO 2 % (0-6); Hematocrit 41.1 % (33.0-51.0); Hemoglobin 12.3 g/dL (11.5-16.0); IMMATURE GRAN ABSOLUTE AUTO 0.02 K/mm3 (0.00-0.10); IMMATURE GRAN PERCENT AUTO 0 % (0-1); LYMPHOCYTES ABSOLUTE AUTO 0.88 K/mm3 (0.84-5.20); LYMPHOCYTES PERCENT AUTO 19 % (21-46); MONOCYTES PERCENT AUTO 7 % (4-13); Mean Corpuscular HGB 24.5 pg (26.0-34.0); Mean Corpuscular HGB Conc 29.9 g/dL (31.5-36.5); Mean Corpuscular Volume 82 fL (80-100); Mean Platelet Volume 10.4 fL (9.1-12.4); NEUTROPHILS ABSOLUTE AUTO 3.24 K/mm3 (1.96-9.15); NEUTROPHILS PERCENT AUTO 71 % (41-73); Platelet Count 209 K/mm3 (150-400); RDW Coefficient Variation 16.6 % (11.7-14.2); RDW Standard Deviation 48.9 fL (35.1-46.3); Red Blood Cell Count 5.03 M/mm3 (3.80-5.20); White Blood Cell Count 4.56 K/mm3 (4.00-11.30)
[2020-09-06 14:50] LABS: Albumin, Blood 3.9 g/dL (3.4-5.0); Albumin/Globulin Ratio 1.3 (0.8-1.8); Bilirubin, Total 0.5 mg/dL (0.1-1.0); Calcium, Blood 9.8 mg/dL (8.5-10.1); Creatinine, Blood 1.1 mg/dL (0.40-1.00); Globulin, Blood 3.1 g/dL (2.2-4.0); Potassium, Blood 3.3 mmol/L (3.5-5.5)
== END 2020-09-06 17:58 | disposition home or self-care (01) ==
LOC: ER 12:41
PROVIDERS: Physician Assistant
DX: R19.7 Diarrhea, unspecified (principal); K29.70 Gastritis, unspecified, without bleeding; I25.10 Atherosclerotic heart disease of native coronary artery without angina pectoris; K21.9 Gastro-esophageal reflux disease without esophagitis; I12.9 Hypertensive chronic kidney disease with stage 1 through stage 4 chronic kidney disease, or unspecified chronic kidney disease; N18.9 Chronic kidney disease, unspecified; J44.9 Chronic obstructive pulmonary disease, unspecified; F41.9 Anxiety disorder, unspecified; Z87.891 Personal history of nicotine dependence
CPT/HCPCS: 36415; 80053; 85025; 96360; 99284-25; J7030

== ENCOUNTER 2020-10-18 13:30 | Emergency (ER) | payer OTHER ==
[~2020-10-18] VITALS: Ht 160 cm; Wt 85.3 kg
[~2020-10-18 13:30] MED LIST changes: -ELIQUIS5 MG PO; -FURO20 PO; -POTCHL20ER PO
[2020-10-18 14:23] LABS: BASOPHILS ABSOLUTE AUTO 0.01 K/mm3 (0.00-0.23); BASOPHILS PERCENT AUTO 0 % (0-2); EOSINOPHILS ABSOLUTE AUTO 0.09 K/mm3 (0.00-0.68); EOSINOPHILS PERCENT AUTO 2 % (0-6); Hematocrit 36.2 % (33.0-51.0); IMMATURE GRAN ABSOLUTE AUTO 0.01 K/mm3 (0.00-0.10); IMMATURE GRAN PERCENT AUTO 0 % (0-1); LYMPHOCYTES ABSOLUTE AUTO 0.85 K/mm3 (0.84-5.20); LYMPHOCYTES PERCENT AUTO 21 % (21-46); MONOCYTES ABSOLUTE AUTO 0.34 K/mm3 (0.16-1.47); MONOCYTES PERCENT AUTO 9 % (4-13); Mean Corpuscular HGB 24.5 pg (26.0-34.0); Mean Corpuscular HGB Conc 30.4 g/dL (31.5-36.5); Mean Corpuscular Volume 81 fL (80-100); Mean Platelet Volume 12.1 fL (9.1-12.4); NEUTROPHILS PERCENT AUTO 67 % (41-73); Platelet Count 141 K/mm3 (150-400); RDW Coefficient Variation 17.1 % (11.7-14.2); RDW Standard Deviation 50.2 fL (35.1-46.3); Red Blood Cell Count 4.49 M/mm3 (3.80-5.20)
[2020-10-18 14:35] LABS: Alanine Aminotransfer (ALT/SGP 70 U/L (12-78); Albumin, Blood 3.2 g/dL (3.4-5.0); Alk Phos 147 U/L (50-136); Anion Gap 7 mmol/L (6-16); Aspartate Aminotrans (AST/SGOT 29 U/L (12-37); Bilirubin, Total 0.7 mg/dL (0.1-1.0); Blood Urea Nitrogen 15 mg/dL (8-24); Bun/Creatinine Ratio 12.5 (12.0-20.0); CO2, Blood 25 mmol/L (21-32); Chloride, Blood 110 mmol/L (98-108); Globulin, Blood 3.1 g/dL (2.2-4.0); Glomerular Filtration Rate 46 (60-); Glucose, Blood 124 mg/dL (70-99); Potassium, Blood 3.7 mmol/L (3.5-5.5); Sodium, Blood 142 mmol/L (136-145); Total Protein, Blood 6.3 g/dL (6.4-8.2); Troponin I <0.015 ng/mL (0.000-0.040)
[2020-10-18] MEDS ORDERED: Alprazolam2 MG PO (16:10)
[2020-10-18 16:12] LABS: Influenza A, PCR Negative (NEGATIVE); Influenza B, PCR Negative (NEGATIVE); Resp Syncytial Virus, PCR Negative (NEGATIVE); SARS-Cov-2 (COVID-19) PCR, MMC Negative (NEGATIVE)
[2020-10-18] MEDS ORDERED: IPRATROPIUM BRO15 ML (16:14)
[2020-10-18] MEDS ORDERED: ELIQUIS5 MG PO (16:15)
[2020-10-18] MEDS ORDERED: POTCHL20ER PO (16:16)
[2020-10-18] MEDS ORDERED: Toprol Xl25 MG PO (17:24)
[2020-10-18] MEDS ORDERED: FURO20 PO (17:31)
[2020-10-18] MEDS ORDERED: XANAX0.25 MG PO (17:32)
[2020-10-18] MEDS ORDERED: OMEP20ER PO (17:34)
[2020-10-18] MEDS ORDERED: Vitamin D2000 UNIT PO (17:34)
== END 2020-10-18 19:39 | disposition home or self-care (01) ==
LOC: ER 13:30
PROVIDERS: Emergency Medicine
DX: R06.02 Shortness of breath (principal); R00.2 Palpitations; R50.9 Fever, unspecified; I25.10 Atherosclerotic heart disease of native coronary artery without angina pectoris; Z20.828 Contact with and (suspected) exposure to other viral communicable diseases; Z88.0 Allergy status to penicillin; Z88.8 Allergy status to other drugs, medicaments and biological substances; Z79.899 Other long term (current) drug therapy
CPT/HCPCS: 0241U; 71045; 71260; 80053; 83880; 84484; 85025; 85379; 93005; 93010; 99285-25; Q9967

== ENCOUNTER 2020-12-25 17:56 | Emergency (ER) | payer OTHER ==
[~2020-12-25] VITALS: Ht 160 cm; Wt 84.8 kg
[~2020-12-25 17:56] MED LIST changes: +Alprazolam2 MG PO; +ELIQUIS5 MG PO; +FURO20 PO; +IPRATROPIUM BRO15 ML; +POTCHL20ER PO; +Toprol Xl25 MG PO; +Vitamin D2000 UNIT PO; +XANAX0.25 MG PO
[2021-03-12] MEDS ORDERED: ALBU90OI INH (11:35)
[2021-03-12] MEDS ORDERED: ZYRTEC10 M2 PO (11:38)
[2021-03-12] MEDS ORDERED: SERT25 PO (11:39)
[2021-03-12] MEDS ORDERED: BUSPIRONE HCL30 M1 PO (11:39)
[2021-03-12] MEDS ORDERED: DULO30 PO (11:39)
[2021-03-12] MEDS ORDERED: Restasis1 EACH BOTHEYES (11:39)
[2021-03-12] MEDS ORDERED: CLON1 PO (11:40)
[2021-03-12] MEDS ORDERED: PERCOCET 10-321 EAC5 PO (11:40)
== END 2020-12-25 19:49 | disposition home or self-care (01) ==
LOC: ER 17:56
DX: S16.1XXA Strain of muscle, fascia and tendon at neck level, initial encounter (principal); J44.9 Chronic obstructive pulmonary disease, unspecified; Z79.01 Long term (current) use of anticoagulants; Z79.899 Other long term (current) drug therapy; Z88.0 Allergy status to penicillin; Z88.8 Allergy status to other drugs, medicaments and biological substances; Z86.73 Personal history of transient ischemic attack (TIA), and cerebral infarction without residual deficits; Z87.891 Personal history of nicotine dependence; V49.40XA Driver injured in collision with unspecified motor vehicles in traffic accident, initial encounter; Y92.410 Unspecified street and highway as the place of occurrence of the external cause
CPT/HCPCS: 72125; 99284-25; A9270

== ENCOUNTER → 2021-03-13 | Outpatient (CLI) | payer OTHER ==
[~2021-03-13] MED LIST changes: +ALBU90OI INH; +BUSPIRONE HCL30 M1 PO; +DULO30 PO; +LORA1SY PO; +METOPROLOL SUCC25 MG PO; +PERCOCET 10-321 EAC5 PO; +PROAIR DIGIHAL90 MCG INH; +Restasis1 EACH BOTHEYES; +ZYRTEC10 M2 PO
[2021-03-13 17:03] LABS: Bun/Creatinine Ratio 20.5 (12.0-20.0); Calcium, Blood 9.8 mg/dL (8.5-10.1); Creatinine, Blood 1.22 mg/dL (0.40-1.00); Potassium, Blood 4.3 mmol/L (3.5-5.5)
== END ==
LOC: LAB SHORT 14:43
PROVIDERS: Otolaryngology
DX: Z01.812 Encounter for preprocedural laboratory examination (principal); J34.3 Hypertrophy of nasal turbinates; J34.2 Deviated nasal septum
CPT/HCPCS: 36415; 80048

== ENCOUNTER 2021-03-19 09:03 | Day surgery (SDC) | payer OTHER ==
[~2021-03-19] VITALS: Ht 160 cm; Wt 86.5 kg
[~2021-03-19 09:03] MED LIST changes: -LORA1SY PO; -METOPROLOL SUCC25 MG PO; -PROAIR DIGIHAL90 MCG INH
[2021-03-19] MEDS ORDERED: OMEP20ER PO ×2 (10:11→10:14)
[2021-03-19] MEDS ORDERED: METOPROLOL SUCC25 MG PO (10:12)
[2021-03-19] MEDS ORDERED: PROAIR DIGIHAL90 MCG INH (10:13)
[2021-03-19] MEDS ORDERED: LORA1SY PO (10:13)
[2021-03-19] MEDS ORDERED: ASPI81CH PO (10:17)
--- NOTE | 2021-03-19 11:19 | NUR ---
03/19/21 1119 An Johnson PLEDGETS SOAKED IN 30ML OF EPI FOR INSERTION INTO NASAL CAVITY PRIOR TO PROCEDURE.
--- NOTE | 2021-03-19 13:21 | NUR ---
03/19/[address] NOTIFIED OF ELEVATED BP IN SDU. NO FURTHER ORDERS AT THIS TIME
== END 2021-03-19 13:45 | disposition home or self-care (01) ==
LOC: ORSCSDS 09:03
PROVIDERS: Otolaryngology
PROC: 09SL0ZZ Reposition Nasal Turbinate, Open Approach (ICD-10-PCS; principal; 2021-03-19 10:30)
PROC: 09BM0ZZ Excision of Nasal Septum, Open Approach (ICD-10-PCS; principal; 2021-03-19 10:30)
DX: J34.2 Deviated nasal septum (principal); J34.3 Hypertrophy of nasal turbinates; I10 Essential (primary) hypertension; I48.91 Unspecified atrial fibrillation; Z79.01 Long term (current) use of anticoagulants; I25.10 Atherosclerotic heart disease of native coronary artery without angina pectoris; J44.9 Chronic obstructive pulmonary disease, unspecified; Z87.891 Personal history of nicotine dependence; K21.9 Gastro-esophageal reflux disease without esophagitis; N18.9 Chronic kidney disease, unspecified; Z86.73 Personal history of transient ischemic attack (TIA), and cerebral infarction without residual deficits; Z79.899 Other long term (current) drug therapy
CPT/HCPCS: A9270; J0171; J1100; J2250; J2405; J2704; J2710; J3010; J7040; J7120

== ENCOUNTER → 2021-06-04 | Outpatient (CLI) | payer OTHER ==
[~2021-06-04] MED LIST changes: +LORA1SY PO; +METOPROLOL SUCC25 MG PO; +PROAIR DIGIHAL90 MCG INH
[2021-06-04 09:28] LABS: Source, Urine Clean Catch
[2021-06-04 11:45] LABS: Appearance, Urine Clear (Clear); Bilirubin, Urine Neg (Neg); Blood, Urine Neg (Neg); Color, Urine Yellow (P-Yellow); Glucose Qualitative, Urine Neg (Neg); Ketones, Urine Neg (Neg); Leukocyte Esterase, Urine Neg (Neg); Nitrite, Urine Neg (Neg); Protein, Urine Neg (Neg); Specific Gravity, Urine 1.015 (1.003-1.022); Urobilinogen, Urine NORM (Normal); pH, Urine 6.5 (5.0-8.0)
== END | disposition home or self-care (01) ==
LOC: LAB SHORT 09:27
PROVIDERS: Nurse Practitioner Psychiatric/Mental Health
DX: N39.0 Urinary tract infection, site not specified (principal); F33.1 Major depressive disorder, recurrent, moderate
CPT/HCPCS: 81003

== ENCOUNTER 2022-03-25 11:09 | Emergency (ER) | payer OTHER ==
[~2022-03-25] VITALS: Ht 154.9 cm; Wt 61.2 kg
== END 2022-03-25 14:03 | disposition home or self-care (01) ==
LOC: ER 11:09
DX: K64.4 Residual hemorrhoidal skin tags (principal); L30.4 Erythema intertrigo; I25.10 Atherosclerotic heart disease of native coronary artery without angina pectoris; I12.9 Hypertensive chronic kidney disease with stage 1 through stage 4 chronic kidney disease, or unspecified chronic kidney disease; N18.9 Chronic kidney disease, unspecified; J44.9 Chronic obstructive pulmonary disease, unspecified; K21.9 Gastro-esophageal reflux disease without esophagitis; F41.9 Anxiety disorder, unspecified; Z88.0 Allergy status to penicillin; Z88.8 Allergy status to other drugs, medicaments and biological substances; Z86.73 Personal history of transient ischemic attack (TIA), and cerebral infarction without residual deficits; Z79.899 Other long term (current) drug therapy; Z79.82 Long term (current) use of aspirin; Z79.01 Long term (current) use of anticoagulants
CPT/HCPCS: 99282

== ENCOUNTER → 2023-05-01 | Outpatient (CLI) | payer OTHER | END | disposition home or self-care (01) | LOC: LAB 15:54 → LAB SHORT 15:54 | DX: R82.79 Other abnormal findings on microbiological examination of urine (principal) | CPT/HCPCS: 87077; 87086; 87186 ==

== ENCOUNTER 2023-06-19 17:55 | Emergency (ER) | payer OTHER ==
[~2023-06-19] VITALS: Ht 162.6 cm; Wt 68.0 kg
[2023-06-19 18:41] VITALS: BP 218/71
[2023-06-19 19:53] LABS: Source, Urine Voided
[2023-06-19 19:57] LABS: BASOPHILS ABSOLUTE AUTO 0.01 K/mm3 (0.00-0.23); BASOPHILS PERCENT AUTO 0 % (0-2); EOSINOPHILS ABSOLUTE AUTO 0.06 K/mm3 (0.00-0.68); EOSINOPHILS PERCENT AUTO 2 % (0-6); Hematocrit 37.3 % (33.0-51.0); Hemoglobin 12.1 g/dL (11.5-16.0); IMMATURE GRAN ABSOLUTE AUTO 0.01 K/mm3 (0.00-0.10); IMMATURE GRAN PERCENT AUTO 0 % (0-1); LYMPHOCYTES ABSOLUTE AUTO 0.96 K/mm3 (0.84-5.20); LYMPHOCYTES PERCENT AUTO 25 % (21-46); MONOCYTES ABSOLUTE AUTO 0.28 K/mm3 (0.16-1.47); MONOCYTES PERCENT AUTO 7 % (4-13); Mean Corpuscular HGB Conc 32.4 g/dL (31.5-36.5); Mean Corpuscular Volume 93 fL (80-100); Mean Platelet Volume 10.1 fL (9.1-12.4); NEUTROPHILS PERCENT AUTO 66 % (41-73); Platelet Count 184 K/mm3 (150-400); RDW Coefficient Variation 13.2 % (11.7-14.2); Red Blood Cell Count 4.03 M/mm3 (3.80-5.20); White Blood Cell Count 3.92 K/mm3 (4.00-11.30)
[2023-06-19 20:02] LABS: Bilirubin, Urine Neg (Neg); Blood, Urine 5+ (Neg); Glucose Qualitative, Urine Neg (Neg); Ketones, Urine Neg (Neg); Leukocyte Esterase, Urine 2+ (Neg); Nitrite, Urine Neg (Neg); Protein, Urine 2+ (Neg); Specific Gravity, Urine 1.015 (1.003-1.022); Urobilinogen, Urine NORM (Normal)
[2023-06-19 20:13] LABS: Amorphous Light (0-Heavy); Appearance, Urine Clear (Clear); Bacteria Few /hpf; Calcium Oxalate Crystals Few /hpf; Color, Urine Pale Yellow (P-Yellow); Red Blood Cells, Urine 25-50 /hpf (0-2); Squamous Epithelial Cells Not Seen /hpf (Few); White Blood Cells, Urine 0-2 /hpf (0-5)
[2023-06-19 20:27] LABS: Albumin/Globulin Ratio 1.3 (0.8-1.8); Bilirubin, Total 0.4 mg/dL (0.1-1.0); Bun/Creatinine Ratio 19.5 (12.0-20.0); Calcium, Blood 9.9 mg/dL (8.5-10.1); Creatinine, Blood 1.13 mg/dL (0.40-1.00)
[2023-06-19] MEDS ORDERED: Norco 5-325 Ta1 EACH PO ×2 (22:12→22:49)
[2023-06-19] MEDS ORDERED: LAVAP4L PO ×2 (22:12→22:49)
== END 2023-06-19 23:00 | disposition home or self-care (01) ==
LOC: ER 17:55
PROVIDERS: Emergency Medicine
DX: R31.9 Hematuria, unspecified (principal); K59.00 Constipation, unspecified; I25.10 Atherosclerotic heart disease of native coronary artery without angina pectoris; I12.9 Hypertensive chronic kidney disease with stage 1 through stage 4 chronic kidney disease, or unspecified chronic kidney disease; N18.9 Chronic kidney disease, unspecified; K21.9 Gastro-esophageal reflux disease without esophagitis; J44.9 Chronic obstructive pulmonary disease, unspecified; Z86.73 Personal history of transient ischemic attack (TIA), and cerebral infarction without residual deficits; Z85.118 Personal history of other malignant neoplasm of bronchus and lung; Z88.0 Allergy status to penicillin; Z88.8 Allergy status to other drugs, medicaments and biological substances; Z79.01 Long term (current) use of anticoagulants; Z79.82 Long term (current) use of aspirin; Z79.899 Other long term (current) drug therapy
CPT/HCPCS: 74177; 80053; 81001; 83690; 85025; 87086; 93005; 93010; 96374-59; 96375; 96376; 99284-25; J1170; J2405; Q9967

== ENCOUNTER 2024-12-22 14:56 | Emergency (ER) | payer OTHER ==
[~2024-12-22] VITALS: Ht 154.9 cm; Wt 65.3 kg
[~2024-12-22 14:56] MED LIST changes: +LAVAP4L PO; +Norco 5-325 Ta1 EACH PO
[2024-12-22 17:06] LABS: BASOPHILS ABSOLUTE AUTO 0.03 K/mm3 (0.00-0.23); BASOPHILS PERCENT AUTO 1 % (0-2); EOSINOPHILS PERCENT AUTO 2 % (0-6); Hemoglobin 12.5 g/dL (11.5-16.0); IMMATURE GRAN ABSOLUTE AUTO 0.03 K/mm3 (0.00-0.10); IMMATURE GRAN PERCENT AUTO 1 % (0-1); LYMPHOCYTES ABSOLUTE AUTO 1.42 K/mm3 (0.84-5.20); LYMPHOCYTES PERCENT AUTO 30 % (21-46); MONOCYTES ABSOLUTE AUTO 0.26 K/mm3 (0.16-1.47); MONOCYTES PERCENT AUTO 5 % (4-13); Mean Corpuscular HGB 30.1 pg (26.0-34.0); Mean Corpuscular HGB Conc 32.9 g/dL (31.5-36.5); Mean Corpuscular Volume 92 fL (80-100); Mean Platelet Volume 9.8 fL (9.1-12.4); NEUTROPHILS ABSOLUTE AUTO 2.97 K/mm3 (1.96-9.15); NEUTROPHILS PERCENT AUTO 62 % (41-73); Platelet Count 246 K/mm3 (150-400); RDW Coefficient Variation 12.9 % (11.7-14.2); RDW Standard Deviation 42.9 fL (35.1-46.3); Red Blood Cell Count 4.15 M/mm3 (3.80-5.20); White Blood Cell Count 4.81 K/mm3 (4.00-11.30)
[2024-12-22 17:30] LABS: Albumin, Blood 4.5 g/dL (3.4-5.0); Albumin/Globulin Ratio 1.4 (0.8-1.8); Bilirubin, Total 0.5 mg/dL (0.1-1.0); Bun/Creatinine Ratio 23.9 (12.0-20.0); Calcium, Blood 10.2 mg/dL (8.5-10.1); Creatinine, Blood 1.09 mg/dL (0.40-1.00); Globulin, Blood 3.3 g/dL (2.2-4.0); Potassium, Blood 3.9 mmol/L (3.5-5.5); Total Protein, Blood 7.8 g/dL (6.4-8.2)
[2024-12-22 17:34] VITALS: BP 161/87
[2024-12-22] MEDS ORDERED: HYDROCODONE-AC1 EA10 PO (17:55)
[2024-12-22] MEDS ORDERED: Clopidogrel Bisulfate 75 MG Tab PO ONE (17:55)
[2024-12-22] MEDS ORDERED: HYDROcodone 5-APAP 325 TAB PO ONE (17:55)
[2024-12-22] MEDS ORDERED: CLOP75 PO (17:55)
== END 2024-12-22 18:10 | disposition home or self-care (01) ==
LOC: ER 14:56
PROVIDERS: Physician Assistant
DX: I73.9 Peripheral vascular disease, unspecified (principal); Z79.899 Other long term (current) drug therapy; Z79.82 Long term (current) use of aspirin; J44.9 Chronic obstructive pulmonary disease, unspecified; I10 Essential (primary) hypertension; K21.9 Gastro-esophageal reflux disease without esophagitis; N18.9 Chronic kidney disease, unspecified
CPT/HCPCS: 80053; 85025; 93926; 99284-25; A9270

== ENCOUNTER 2024-12-29 08:47 | Observation (INO) | payer OTHER ==
[~2024-12-29] VITALS: Ht 154.9 cm; Wt 68.0 kg
[2024-12-29] VITALS (15 sets, daily range): BP systolic 88–159; BP diastolic 57–96
[~2024-12-29 08:47] MED LIST changes: +ACET500 PO; +AMLO5 PO; +Diprolene 0.05%15 GM TP; +GABA300 PO; +HYDROCODONE-AC1 EA10 PO; +LOSA25 PO; +ONDA4ODT MM; +VIT D PO; +Vitamin D1000 UNI1 PO; +[UNRECOGNIZED DRUG - OTHER] PO
--- NOTE | 2024-12-29 11:29 | NUR ---
ARRIVES EARLIER FROM WINDOWS LAPTOP TECHNICIAN, RIGHT RADIAL SITE INTACT, LEFT LEG; RECENTLY BECAME NAUSEATED, UP TO RESTROOM PRIOR AND INTACT TO SITES, NO CONCERNS, UPON RETURN TO BED NAUSEATED PAINFUL OF ABDOMEN WHICH WAS PAINFUL PRIOR WELL AND PROVIDER SAW PATIENT, GIVEN ZOFRAN AND IV INFILTRATION AFTER WITH FLUSH; GIVEN NEW IV TO LEFT ARM, 22G. FENTANYL GIVEN, PATIENT UP TO RESTROOM AGAIN STATES "I HAVE TO USE RESTROOM AGAIN", TIME NOW IS 1149, PATIENT HAS RETURNED TO BED, UP FOR A FEW REASONS TODAY WITH RECOVERY PATIENTS, PATIENT VERY RESTLESS AND CONTINUES TO C/O NAUSEA, MOVES ONTO SIDE, MONITOR CONTINUES TO FALSE ALARM DUE TO EXCESSIVE MOVEMENT AND PATIENT DID VERBALIZE SHE DID HAVE A BOWEL MOVEMENT HOWEVER. FAMILY AT BEDSIDE, PLACED BACK TO MD AT 2L. WILL CONTINUE TO MONITOR ABLE AND PROVIDE COMFORT TO PATIENT.
--- NOTE | 2024-12-29 12:01 | NUR ---
PATIENT REMAINS UPSET STATING SHE WAS HERE EARLY AND THE OTHER ROSA WAS "FORTY FIVE MINUTES LATE", SHE IS VERY UPSET THAT PROCEDURE WAS DELAYED, ENCOURAGED PATIENT EARLIER REGARDING PROCEDURE, PRESENTLY WAS REASSURED SHE CAN RESCHEDULE BY EVERTON VALE AND PREVIUSLY WAS REASSURED SIMILARLY BY EVERTON LANE, BOTH ALSO DISCUSSED PRIORITIES, WAIT TIMES, REASONS FOR VISIT AND OTHER PROCEDURES AND TIMES AND PRIORITIES IN MACHINE STOPPAGE FREQUENCY CHECKER WITH PATIENT, PATIENT HAS THUS FAR OPTED TO STAY AND OTHERWISE RESTING, DOES LIKE GAME OF THRONES.
[2024-12-29] MEDS ORDERED: Morphine Sulfate 4 MG/1 ML Injection ONE ×2 (12:33→15:12)
[2024-12-29] MEDS ORDERED: NS 1,000 ML IV ONE ×4 (13:15→15:19)
[2024-12-29] MEDS ORDERED: NS 250 ML IV ONE ×2 (13:15→15:14)
[2024-12-29] MEDS ORDERED: Heparin Sodium 1000 Units/ML 10ML MDV ONE ×2 (13:15→15:14)
[2024-12-29] MEDS ORDERED: Nitroglycerin 2 MG/20 ML BTL ONE ×2 (13:16→15:19)
[2024-12-29] MEDS ORDERED: Midazolam HCl 1MG / ML 2ML Vial ONE ×2 (13:27→14:09)
[2024-12-29] MEDS ORDERED: FentaNYL Citrate 50 MCG/ML 2 ML Injection ONE ×2 (13:28→14:26)
[2024-12-29] MEDS ORDERED: HydrALAZINE HCl 20 MG / ML 1ML Vial ONE (14:05)
[2024-12-29] MEDS ORDERED: Nitroglycerin 0.4 MG SUBL ONE (15:10)
[2024-12-29] MEDS ORDERED: Verapamil HCL 2.5 MG/ML 2ML Injection ONE (15:16)
[2024-12-29] MEDS ORDERED: Phenylephrine HCl 100 MCG/ML-NS 10MLSYR (1MG/10ML) ONE (15:21)
[2024-12-29] MEDS ORDERED: Labetalol HCL 5 MG/ML 4ML Injection (Single Dose) ONE (15:46)
[2024-12-29] MEDS ORDERED: Atropine Sulfate 0.1 MG/ML 10ML SYR ONE (15:52)
[2024-12-29] MEDS ORDERED: Ondansetron HCl 2 MG / ML 2ML Vial IV PRN ×2 (16:35→17:05)
[2024-12-29] MEDS ORDERED: HydrALAZINE HCl 20 MG / ML 1ML Vial IV PRN (16:40)
[2024-12-29] MEDS ORDERED: FLU VACC TS2024-25(6MOS UP)/PF 45 MCG/0.5 ML SYRINGE IM SCH ×2 (16:40→17:00)
--- NOTE | 2024-12-29 16:46 | NUR ---
TRANSFER TO ICU PT ARRIVED AT APPROXIMATELY 1630 TO ICU. REPORT WAS TAKEN AT BEDSIDE. PT COMPLAINS OF 10/10 PAIN LOCATED IN ORDER OF BL GROIN PAIN, LOW BACK PAIN, AND HEAD/EAR PAIN. 1ML OF AIR ATTEMPTED TO REMOVE FROM R TR BAND WITH A HEMATOMA ALMOST INSTANTLY DEVELOPING, 1 ML AIR ADDED BACK TO BAND. BL GROIN SITES ARE TENDER TO PALPATION BUT APPEAR TO BE C/D/I WITH MINIMAL BLOOD. PT ROLLED AND APPEARED TO HAVE MINIMAL BLOOD DISTAL TO GROIN SITES. PAIN WILL BE MANAGED WITH MEDS ON EMAR. PT AO X 4 AND APPEARS ANXIOUS. WILL CONTINUE WITH THE PLAN OF CARE.
[2024-12-29] MEDS ORDERED: Prochlorperazine Edisylate 10 mg Vial IV PRN (17:00)
[2024-12-29] MEDS ORDERED: Magnesium Hydroxide Conc 10 ML UDC PO PRN (17:00)
[2024-12-29] MEDS ORDERED: Ondansetron 4 MG TAB PO PRN (17:00)
[2024-12-29] MEDS ORDERED: Enoxaparin 40 MG/0.4 ML SYR SC SCH (17:00)
[2024-12-29] MEDS ORDERED: Prochlorperazine Maleate 5 MG Tab PO PRN (17:00)
[2024-12-29] MEDS ORDERED: Bisacodyl 10 MG Supp PR PRN (17:00)
--- NOTE | 2024-12-29 17:03 | NUR ---
UPDATED MD DIAZ UPDATED ON PT PAIN 09/07 FROM GROIN, LOW BACK AND HEAD. MD ORDERED FENT 25-50MCG PRN Q4. WILL CONTINUE WITH THE PLAN OF CARE.
[2024-12-29] MEDS ORDERED: FentaNYL Citrate 50 MCG/ML 2 ML Injection IV PRN (17:05)
[2024-12-29] MEDS ORDERED: Melatonin 3 MG Tab PO PRN (17:05)
[2024-12-29 17:40] LABS: BASOPHILS ABSOLUTE AUTO 0.01 K/mm3 (0.00-0.23); BASOPHILS PERCENT AUTO 0 % (0-2); EOSINOPHILS ABSOLUTE AUTO 0.05 K/mm3 (0.00-0.68); EOSINOPHILS PERCENT AUTO 1 % (0-6); Hematocrit 34.1 % (33.0-51.0); IMMATURE GRAN ABSOLUTE AUTO 0.02 K/mm3 (0.00-0.10); IMMATURE GRAN PERCENT AUTO 1 % (0-1); LYMPHOCYTES ABSOLUTE AUTO 1.25 K/mm3 (0.84-5.20); LYMPHOCYTES PERCENT AUTO 28 % (21-46); MONOCYTES PERCENT AUTO 7 % (4-13); Mean Corpuscular HGB 30.2 pg (26.0-34.0); Mean Corpuscular HGB Conc 32.3 g/dL (31.5-36.5); Mean Corpuscular Volume 94 fL (80-100); Mean Platelet Volume 10.3 fL (9.1-12.4); NEUTROPHILS ABSOLUTE AUTO 2.77 K/mm3 (1.96-9.15); NEUTROPHILS PERCENT AUTO 63 % (41-73); Platelet Count 183 K/mm3 (150-400); RDW Coefficient Variation 12.5 % (11.7-14.2); RDW Standard Deviation 43.2 fL (35.1-46.3); Red Blood Cell Count 3.64 M/mm3 (3.80-5.20)
[2024-12-29 17:55] LABS: Albumin, Blood 3.8 g/dL (3.4-5.0); Albumin/Globulin Ratio 1.3 (0.8-1.8); Bilirubin, Total 0.3 mg/dL (0.1-1.0); Bun/Creatinine Ratio 20.1 (12.0-20.0); Calcium, Blood 9.4 mg/dL (8.5-10.1); Creatinine, Blood 0.95 mg/dL (0.40-1.00); Globulin, Blood 2.9 g/dL (2.2-4.0); Potassium, Blood 3.8 mmol/L (3.5-5.5); Total Protein, Blood 6.7 g/dL (6.4-8.2)
--- NOTE | 2024-12-29 19:01 | NUR ---
PROCEDURE NOTE. PATIENT VERY ANXIOUS AND TEARFUL PRIOR TO PROCEDURE. PT CALMED WITH THERAPEUTIC COMMUNITCATION AND VERSED/FENTANYL. LARGE DISCREPANCY NOTED BETWEEN BILAT UPPER ARM PRESSURES AND AROTIC PRESSURE. RIGHT AND LEFT UPPER ARMS SHOWED NORMOTENSIVE PRESSSURES WHILE AORTIC PRESSURE SHOWED SIGNIFICANT HYPERTENSION. PATIENT WAS TREATED FOR HYPERTENSION DURING CASE WITH HYDRALAZINE 20MG IV. THE SEDATION MEDS ALSO HELPED LOWER BP SLIGHTLY. PATIENT EXPERIENCED PAIN WHILE BALLOONING THE [place] AND COMMON ILIAC ARTERIES. PATIENTS PAIN COMPLAINTS INTENSIFIED CASE PROGRESSED. PT COMPLAINED OF SEVERE PAIN TO HER FOOT AND "BIG" TOE. PT ALSO COMPLAINED OF LOWER BACK AND "SPINE PAIN". PT C/O BURNING TO HER THIGHS. ADDITIONAL DOSES OF FENTANYL DID NOT SEEM TO ALLEVIATE HER PAIN. PATIENT WAS CHECKED FOR BLEED; WHICH WAS NOT FOUND. AT END OF CASE WHEN CLOSURE DEVICES WERE BEING PLACED PT C/O PRESSURE IN HER HEAD AND SEVERE PAIN "EVERYWHERE". AT THIS TIME IT WAS NOTED THAT PATIENT HAD ST DEPRESSION. AN EKG WAS IMMEDIATELY PERFORMED AND DR HAWLEY WAS CONSULTED. WHEN ASKED IF PATIENT WAS EXPERIENCING CHEST PAIN, PT STATED YES. (AT FIRST SHE STATED SHE WASNT SURE AND THEN SAID "YES"). S.L NTG WAS GIVEN ONCE WITHOUT IMPROVEMENT IN HER PAIN, FOLLOWED BY MORPHINE 2MG WHICH DID HELP "A LITTLE". UPPER ARM BP WAS SHOWING LOW PRESSURES, STAFF AWARE THAT ARTERIAL PRESSURES WHERE MUCH HIGHER DURING CASE, PT INFORMED STAFF AND DR THAT SHE HAS A HISTORY OF SUBCLAVIAN ARTERIAL STENOSIS. DR HAWLEY AT BEDSIDE TO PERFORM CORONARY ANGIOGRAM SHORTLY AFTER EKG TAKEN. PATIENTS HR AROUND 110 WITH DEPRESSION. SATS >95% ON 4L VIA OXYMASK. 1L NS BOLUS ORDERED BY DR HAWLEY AND STARTED ON PRESSURE BAG. KATHIA 200MCG GIVEN IV PT DIAPHORETIC AND PALE. LEVOPHED ORDERED BUT NOT STARTED ARTERIAL PRESSURE (ONCE ACCESSED BY DR HAWLEY) SHOWED SIGNIFICANT HYPERTENSION. LABETALOL 5MG IV ORDERED AND GIVEN WITH GOOD EFFECT. BP LOWERED TO NORMOTENSIVE LEVEL, HR DECREASED TO 80'S, AND DURING THE CASE ST DEPRESSION IMPROVED. PT DID NOT REQUIRE CORONARY INTERVENTION. PT WAS TRANSFERED TO ICU ON ZOLL AND BEDSIDE REPORT WAS GIVEN. SITES REVIEWED. RIGHT AND LEFT GROIN SOFT. RIGHT TR BAND SITE REVIEWED. FINGERS SLIGHTLY DUSKY BUT WITH CAP REFILL <3SEC. SMALL AMT OF SWELLING(SOFT) NOTED DISTAL TO TR BAND, PRESSURE HELD BY TELEGRAPH SERVICE RATER.
[2024-12-29] MEDS ORDERED: ALPRAZolam 1 MG Tab PO PRN ×2 (21:00→23:40)
[2024-12-29] MEDS ORDERED: Docusate Sodium 100 MG Cap PO SCH (21:00)
[2024-12-29] MEDS ORDERED: Losartan Potassium 25 MG Tab PO SCH (23:40)
[2024-12-29] MEDS ORDERED: HYDROcodone 5-APAP 325 TAB PO PRN (23:45)
[2024-12-29] MEDS ORDERED: Acetaminophen 500 MG Tab PO PRN (23:50)
[2024-12-29] MEDS ORDERED: Ipratropium 0.06% Nasal Spray PRN (23:50)
[2024-12-30] VITALS (15 sets, daily range): BP systolic 85–154; BP diastolic 53–96
[2024-12-30] MEDS ORDERED: Misc. Topical TOP PRN (00:15)
[2024-12-30] MEDS ORDERED: Albuterol HFA200 ACT/6.7 GM INH INH PRN (00:20)
[2024-12-30 03:39] LABS: BASOPHILS ABSOLUTE AUTO 0.01 K/mm3 (0.00-0.23); BASOPHILS PERCENT AUTO 0 % (0-2); EOSINOPHILS ABSOLUTE AUTO 0.02 K/mm3 (0.00-0.68); EOSINOPHILS PERCENT AUTO 1 % (0-6); Hematocrit 31.3 % (33.0-51.0); Hemoglobin 10.2 g/dL (11.5-16.0); IMMATURE GRAN ABSOLUTE AUTO 0.01 K/mm3 (0.00-0.10); IMMATURE GRAN PERCENT AUTO 0 % (0-1); LYMPHOCYTES ABSOLUTE AUTO 0.66 K/mm3 (0.84-5.20); LYMPHOCYTES PERCENT AUTO 18 % (21-46); MONOCYTES ABSOLUTE AUTO 0.24 K/mm3 (0.16-1.47); MONOCYTES PERCENT AUTO 7 % (4-13); Mean Corpuscular HGB 30.3 pg (26.0-34.0); Mean Corpuscular HGB Conc 32.6 g/dL (31.5-36.5); Mean Corpuscular Volume 93 fL (80-100); Mean Platelet Volume 10.1 fL (9.1-12.4); NEUTROPHILS ABSOLUTE AUTO 2.74 K/mm3 (1.96-9.15); NEUTROPHILS PERCENT AUTO 75 % (41-73); Platelet Count 172 K/mm3 (150-400); RDW Coefficient Variation 12.8 % (11.7-14.2); RDW Standard Deviation 43.4 fL (35.1-46.3); Red Blood Cell Count 3.37 M/mm3 (3.80-5.20); White Blood Cell Count 3.68 K/mm3 (4.00-11.30)
[2024-12-30 04:04] LABS: Albumin, Blood 3.6 g/dL (3.4-5.0); Albumin/Globulin Ratio 1.5 (0.8-1.8); Bilirubin, Total 0.3 mg/dL (0.1-1.0); Bun/Creatinine Ratio 15.3 (12.0-20.0); Calcium, Blood 9.5 mg/dL (8.5-10.1); Creatinine, Blood 0.98 mg/dL (0.40-1.00); Globulin, Blood 2.4 g/dL (2.2-4.0); Potassium, Blood 3.6 mmol/L (3.5-5.5)
--- NOTE | 2024-12-30 05:19 | NUR ---
NOC SHIFT SUMMARY NO ACUTE EVENTS OVERNIGHT. PT MEDICATED FOR ANXIETY W/ PRN MEDS. WAS COOPERATIVE W/ CARE. PT ALSO GIVEN PRN PAIN MEDS FOR PAIN TO GROIN SITE/ LOW BACK PAIN W/ GOOD EFFECT. PT LUNGS CLEAR. PLACED ON 2L WHILE SLEEPING FOR DESATURATIONS TO MID 80S. PT BP STABLE W/ MAPS >65. PT UP TO COMMODE AND WAS STABLE ON FEET. PUREWICK IN PLACE. PT AFEBRILE. PROVIDED PO FLUIDS AND TOLERATED WELL. CALL LIGHT W/ IN REACH. PLAN OF CARE ONGOING.
[2024-12-30] MEDS ORDERED: Omeprazole 20 MG CapCR PO SCH (06:00)
--- NOTE | 2024-12-30 07:27 | NUR ---
START OF SHIFT THIS NURSE ASSUMED CARE AT APPROXIMATELY 0700. PT LAYING IN BED WITHOUT COMPLAINTS. PT DENIES ANY NEW OR ACUTE PAIN. R ULNAR SITE HAS NO SIGNS OF BLEEDING OR HEMATOMA, TR BAND IS OFF. BL FEM A. SITES APPEAR SOFT AND WNL. PT EAGER TO GO HOME OR TRANSFER OUT OF UNIT. WILL CONTINUE WITH THE PLAN OF CARE.
[2024-12-30] MEDS ORDERED: Loratadine 10 MG Tab PO SCH (09:00)
[2024-12-30] MEDS ORDERED: Misc. Opth BOTHEYES SCH (09:00)
[2024-12-30] MEDS ORDERED: Furosemide 20 MG Tab PO SCH (09:00)
[2024-12-30] MEDS ORDERED: Potassium Chloride 20 MEQ TabCR PO SCH (09:00)
[2024-12-30] MEDS ORDERED: Apixaban 5 MG Tab PO SCH (09:00)
[2024-12-30] MEDS ORDERED: Famotidine 20 MG Tab PO SCH (09:00)
[2024-12-30] MEDS ORDERED: Aspirin 81 MG Chew PO SCH (09:00)
[2024-12-30] MEDS ORDERED: AmLODIPine Besylate 5 MG Tab PO SCH (09:00)
--- NOTE | 2024-12-30 16:46 | NUR ---
Faxed [facility] referral form for follow up with Dr Valverde.
--- NOTE | 2024-12-30 17:15 | NUR ---
DISCHARGE DISCHARGE PAPERWORK WENT OVER WITH PT. CAME TO ROOM AND EDUCATED PT ON PROCEDURE AND FOLLOW UP. PT HAS NO FURTHER QUESTIONS OR CONCERNS AT THIS TIME.
[2024-12-30] MEDS ORDERED: Gabapentin 300 MG Cap PO SCH (21:00)
[2024-12-30] MEDS ORDERED: DiphenhydrAMINE HCL 25 MG Cap PO SCH (21:00)
== END 2024-12-30 17:20 | disposition home or self-care (01) ==
LOC: MHTC 08:47 → ICUE 16:21 → MHTC 16:21 → ICUE 23:15 → MHTC 23:15 → ICUE 12-30 17:20
PROVIDERS: ADMIT Internal Medicine
DX: I70.223 Atherosclerosis of native arteries of extremities with rest pain, bilateral legs (principal); I24.9 Acute ischemic heart disease, unspecified; I16.0 Hypertensive urgency; I25.10 Atherosclerotic heart disease of native coronary artery without angina pectoris; I12.9 Hypertensive chronic kidney disease with stage 1 through stage 4 chronic kidney disease, or unspecified chronic kidney disease; N18.9 Chronic kidney disease, unspecified; I77.1 Stricture of artery; J44.9 Chronic obstructive pulmonary disease, unspecified; G50.0 Trigeminal neuralgia; K21.9 Gastro-esophageal reflux disease without esophagitis; E78.5 Hyperlipidemia, unspecified; F43.10 Post-traumatic stress disorder, unspecified; Z95.5 Presence of coronary angioplasty implant and graft; Z87.891 Personal history of nicotine dependence; Z79.82 Long term (current) use of aspirin; Z79.02 Long term (current) use of antithrombotics/antiplatelets; Z79.899 Other long term (current) drug therapy; Z88.8 Allergy status to other drugs, medicaments and biological substances; Z88.5 Allergy status to narcotic agent; Z88.2 Allergy status to sulfonamides; Z88.0 Allergy status to penicillin; Z90.710 Acquired absence of both cervix and uterus; Z90.49 Acquired absence of other specified parts of digestive tract
CPT/HCPCS: 36140; 36200; 36415; 37799; 75625; 75716; 76937; 80053; 85025; 93005; 93010; 93458; 96374; 99152; 99153; A9270; C1725; C1760; C1769; C1876; C1887; C1894; C9765; G0378; J0360; J0461; J1644; J1650; J2250; J2270; J2371; J3010; J7030; J7050; Q9967

== ENCOUNTER 2025-01-19 08:26 | Day surgery (SDC) | payer OTHER ==
[2025-01-19] VITALS (13 sets, daily range): BP systolic 58–138; BP diastolic 45–105
[~2025-01-19] VITALS: Ht 154.9 cm; Wt 68.0 kg
[~2025-01-19 08:26] MED LIST changes: +Heparin Sodium 1000 Units/ML 10ML MDV ONE; +IPRATROPIUM BRO30 ML; +MUPIROCIN1 G1 TOP; +NS 1,000 ML IV ONE; +NS 500 ML IV ONE; +Nitroglycerin 2 MG/20 ML BTL ONE; +PLAVIX75 MG PO; +RESTASIS 0.05% BOTHEYES
--- NOTE | 2025-01-19 09:21 | NUR ---
22 G IV DISCONTINUED FROM L AC WITH INTACT CANNULA. 20G IV PLACED IN R AC PER PROTOCOL BY EVERTON CONNELL.
[2025-01-19] MEDS ORDERED: Heparin Sodium 1000 Units/ML 10ML MDV ONE (09:25)
[2025-01-19] MEDS ORDERED: Midazolam HCl 1MG / ML 2ML Vial ONE (09:25)
[2025-01-19] MEDS ORDERED: FentaNYL Citrate 50 MCG/ML 2 ML Injection ONE ×2 (09:25→09:53)
[2025-01-19] MEDS ORDERED: HydrALAZINE HCl 20 MG / ML 1ML Vial ONE (09:42)
--- NOTE | 2025-01-19 10:53 | NUR ---
PT RETURNED TO RECOVERY ROOM IN BED. RIGHT FEMORAL GROIN SITE SOFT WITH NO HEMATOMA, NO PULSATILE BLEEDING, SOME TRACK OOZING NOTED WITH INTACT DRESSING. PT C/O SORENESS IN RIGHT GROIN, BUT NO BACK PAIN. CALL LIGHT IN REACH. PT C/O RIGHT HEAL PAIN WHICH SHE STATED UPON ARRIVAL TODAY TO [facility].
--- NOTE | 2025-01-19 11:09 | NUR ---
NO CHANGES TO R FEM FROIN SITE.
--- NOTE | 2025-01-19 11:24 | NUR ---
NO CHANGES TO R FEM GROIN SITE. R PT STILL DOPPLER PULSE.
--- NOTE | 2025-01-19 11:44 | NUR ---
pt sat to 30 degrees. groin site soft. no sign of bleeding or hematoma.
--- NOTE | 2025-01-19 12:47 | NUR ---
AT 1230 DR SALDANA IN ROOM TO SEE PT AND EVALUATE R GROIN/THIGH PAIN. SEE NEW ORDERS/RX.
--- NOTE | 2025-01-19 12:59 | NUR ---
NO CHANGES TO R FEM GROIN SITE. R PT DOPPLER PULSE.
--- NOTE | 2025-01-19 13:39 | NUR ---
NO CHANGES TO R FEM GROIN SITE. PT AMBULATED TO BR TO VOID. 20 G IV DISCONTINUED FROM RIGHT AC WITH INTACT CANNULA. DISCHARGE INSTURCTIONS REVIEWED ALL QUESTIONS ANSWERED. PT ESCORTED OUT VIA WHEELCHAIR ESCORT.
== END 2025-01-19 13:57 | disposition home or self-care (01) ==
LOC: MHTC 08:26
DX: I70.223 Atherosclerosis of native arteries of extremities with rest pain, bilateral legs (principal); E78.5 Hyperlipidemia, unspecified; I25.10 Atherosclerotic heart disease of native coronary artery without angina pectoris; J44.9 Chronic obstructive pulmonary disease, unspecified; I12.9 Hypertensive chronic kidney disease with stage 1 through stage 4 chronic kidney disease, or unspecified chronic kidney disease; N18.9 Chronic kidney disease, unspecified; K21.9 Gastro-esophageal reflux disease without esophagitis; F43.10 Post-traumatic stress disorder, unspecified; Z79.899 Other long term (current) drug therapy; Z87.891 Personal history of nicotine dependence; Z88.0 Allergy status to penicillin; Z88.2 Allergy status to sulfonamides; Z88.5 Allergy status to narcotic agent; Z88.8 Allergy status to other drugs, medicaments and biological substances
CPT/HCPCS: 37225; 75625; 75716; 75774; 76937; 99152; 99153; C1714; C1725; C1760; C1769; C1887; C1894; C2623; J0360; J1644; J2250; J3010; J7030; J7050; Q9967

== ENCOUNTER 2025-01-22 14:02 | Emergency (ER) | payer OTHER ==
[~2025-01-22] VITALS: Ht 157.5 cm; Wt 65.8 kg
[~2025-01-22 14:02] MED LIST changes: -Heparin Sodium 1000 Units/ML 10ML MDV ONE; -NS 1,000 ML IV ONE; -NS 500 ML IV ONE; -Nitroglycerin 2 MG/20 ML BTL ONE
[2025-01-22 15:57] LABS: BASOPHILS ABSOLUTE AUTO 0.02 K/mm3 (0.00-0.23); BASOPHILS PERCENT AUTO 0 % (0-2); EOSINOPHILS PERCENT AUTO 4 % (0-6); Hematocrit 33.5 % (33.0-51.0); Hemoglobin 10.8 g/dL (11.5-16.0); IMMATURE GRAN ABSOLUTE AUTO 0.02 K/mm3 (0.00-0.10); IMMATURE GRAN PERCENT AUTO 0 % (0-1); LYMPHOCYTES PERCENT AUTO 22 % (21-46); MONOCYTES ABSOLUTE AUTO 0.38 K/mm3 (0.16-1.47); MONOCYTES PERCENT AUTO 8 % (4-13); Mean Corpuscular HGB 29.8 pg (26.0-34.0); Mean Corpuscular HGB Conc 32.2 g/dL (31.5-36.5); Mean Corpuscular Volume 93 fL (80-100); Mean Platelet Volume 10.1 fL (9.1-12.4); NEUTROPHILS ABSOLUTE AUTO 2.94 K/mm3 (1.96-9.15); NEUTROPHILS PERCENT AUTO 65 % (41-73); Platelet Count 222 K/mm3 (150-400); RDW Standard Deviation 43.8 fL (35.1-46.3); Red Blood Cell Count 3.62 M/mm3 (3.80-5.20); White Blood Cell Count 4.56 K/mm3 (4.00-11.30)
[2025-01-22 16:19] LABS: Albumin, Blood 4.2 g/dL (3.4-5.0); Albumin/Globulin Ratio 1.3 (0.8-1.8); Bilirubin, Total 0.4 mg/dL (0.1-1.0); Calcium, Blood 10.2 mg/dL (8.5-10.1); Creatinine, Blood 1.7 mg/dL (0.40-1.00); Globulin, Blood 3.2 g/dL (2.2-4.0); Total Protein, Blood 7.4 g/dL (6.4-8.2)
[2025-01-22] MEDS ORDERED: Gabapentin 300 MG Cap PO ONE (20:10)
[2025-01-22] MEDS ORDERED: Acetaminophen 500 MG Tab PO ONE (20:10)
[2025-01-22] MEDS ORDERED: Ibuprofen 600 MG Tab PO ONE (20:10)
[2025-01-22 21:01] VITALS: BP 189/92
== END 2025-01-22 21:25 | disposition home or self-care (01) ==
LOC: ER 14:02
PROVIDERS: Physician Assistant
DX: I97.89 Other postprocedural complications and disorders of the circulatory system, not elsewhere classified (principal); M79.672 Pain in left foot; M79.671 Pain in right foot; M79.2 Neuralgia and neuritis, unspecified; J44.9 Chronic obstructive pulmonary disease, unspecified; I12.9 Hypertensive chronic kidney disease with stage 1 through stage 4 chronic kidney disease, or unspecified chronic kidney disease; N18.9 Chronic kidney disease, unspecified; I25.10 Atherosclerotic heart disease of native coronary artery without angina pectoris; Z98.62 Peripheral vascular angioplasty status; Z86.73 Personal history of transient ischemic attack (TIA), and cerebral infarction without residual deficits; Z88.0 Allergy status to penicillin; Z88.2 Allergy status to sulfonamides; Z88.8 Allergy status to other drugs, medicaments and biological substances; Z79.01 Long term (current) use of anticoagulants; Z79.899 Other long term (current) drug therapy
CPT/HCPCS: 80053; 83605; 84484; 85025; 85379; 93005; 93010; 93971; 99284-25; A9270

== ENCOUNTER 2025-03-15 11:09 | Day surgery (SDC) | payer OTHER ==
[~2025-03-15] VITALS: Ht 154.9 cm; Wt 65.8 kg
[~2025-03-15 11:09] MED LIST changes: +ATROVENT HFA12.9 GM IH; +Atarax10 MG PO; +Crestor40 MG PO; +GAVISCON PO; +MULTI-VITAMIN1 EAC2 PO
[2025-03-15 12:45] VITALS: BP 121/71
[2025-03-15] MEDS ORDERED: NS 100 ML IV ONE (13:18)
[2025-03-15] MEDS ORDERED: Heparin Sodium 1000 Units/ML 10ML MDV ONE (13:18)
[2025-03-15] MEDS ORDERED: NS 250 ML IV ONE (13:18)
[2025-03-15] MEDS ORDERED: Nitroglycerin 2 MG/20 ML BTL ONE (13:19)
[2025-03-15] MEDS ORDERED: NS 2,000 ML IV ONE (13:19)
[2025-03-15] MEDS ORDERED: FentaNYL Citrate 50 MCG/ML 2 ML Injection ONE ×2 (13:45→14:36)
[2025-03-15] MEDS ORDERED: Midazolam HCl 1MG / ML 2ML Vial ONE ×2 (13:45→14:36)
[2025-03-15 15:30] VITALS: BP 159/62
--- NOTE | 2025-03-15 15:44 | NUR ---
PATIENT RETURNED EARLIER, SITE TO LEFT GROIN INTACT, SEVERE CRAMPING PT C/O INITIALLY, MASSAGE TO CALF AND CRAMPING SUBSIDED ALSO WITH REDIRECT AND LIGHTS LOW, PATIENT SLEPT, NOW AWAKENED MORE AND IMPROVED WITH PAIN, DID ATTEMPT TURNING, REINFORCED NEED TO LAY FLAT, SITE POSSIBLY SMALL OOZE BUT APPEARS OK NOW, NO CONCERNS OTHERWISE. CONTINUING TO MONITOR, VSS, D/C PENDING.
[2025-03-15 16:00] VITALS: BP 171/68
[2025-03-15 16:30] VITALS: BP 166/61
--- NOTE | 2025-03-15 17:31 | NUR ---
EARLIER PATIENT C/O SEVERE CRAMP RIGHT LEG, IMPROVED WITH REST AND THEN RETURNED, PATIENT VERY ANXIOUS BUT AMBULATED TO RESTROOM COMPLAINING FOR ABOUT 5 FEET THEN FINE THE REST OF THE WAY TO AND FROM WITH COMPLAINTS R/T HAVING TO GET DRESSED. VSS, IV REMOVED AND PATIENT DRESSED, SITE TO LEFT GROIN REMAINED INTACT, NO CHANGES FROM ARRIVAL, SOFT, NO HEMATOMA. TAKEN BY WHEELCHAIR TO FRONT ENTRANCE AND AWAITING RIDE AT PRESENT TIME, DENIED QUESTIONS OR CONCERNS, ENCOURAGED TO CALL/RETURN IF ANY ISSUES. DISCUSSED D/C INSTRUCTIONS, UPDATED MED LIST, AND FEMORAL SITE CARE PRIOR TO LEAVING WELL, NO QUESTIONS AT THAT TIME.
== END 2025-03-15 23:00 | disposition home or self-care (01) ==
LOC: MHTC 11:09
DX: I70.221 Atherosclerosis of native arteries of extremities with rest pain, right leg (principal); I13.0 Hypertensive heart and chronic kidney disease with heart failure and stage 1 through stage 4 chronic kidney disease, or unspecified chronic kidney disease; N18.30 Chronic kidney disease, stage 3 unspecified; I50.30 Unspecified diastolic (congestive) heart failure; N25.81 Secondary hyperparathyroidism of renal origin; J44.9 Chronic obstructive pulmonary disease, unspecified; E03.9 Hypothyroidism, unspecified; I48.0 Paroxysmal atrial fibrillation; E78.5 Hyperlipidemia, unspecified; I25.10 Atherosclerotic heart disease of native coronary artery without angina pectoris; K21.9 Gastro-esophageal reflux disease without esophagitis; Z95.5 Presence of coronary angioplasty implant and graft; Z87.891 Personal history of nicotine dependence; Z88.0 Allergy status to penicillin; Z88.2 Allergy status to sulfonamides; Z88.8 Allergy status to other drugs, medicaments and biological substances; Z79.82 Long term (current) use of aspirin; Z79.899 Other long term (current) drug therapy
CPT/HCPCS: 37225; 75716; 75774; 76937; 99152; 99153; C1714; C1760; C1769; C1887; C1894; C2623; J1644; J2250; J3010; J7030; J7050; Q9967

== ENCOUNTER 2025-03-21 01:05 | Day surgery (SDC) | payer OTHER | END 2025-03-21 23:00 | disposition home or self-care (01) | LOC: WOUND 01:05 | DX: L97.412 Non-pressure chronic ulcer of right heel and midfoot with fat layer exposed (principal); I70.221 Atherosclerosis of native arteries of extremities with rest pain, right leg; G62.9 Polyneuropathy, unspecified; J44.9 Chronic obstructive pulmonary disease, unspecified; Z88.0 Allergy status to penicillin; Z88.2 Allergy status to sulfonamides; Z88.8 Allergy status to other drugs, medicaments and biological substances | CPT/HCPCS: G0463 ==

== ENCOUNTER 2025-03-28 05:28 | Day surgery (SDC) | payer OTHER ==
[2025-03-28] MEDS ORDERED: PROTONIX4010 PO ×2 (22:46)
== END 2025-03-28 23:00 | disposition home or self-care (01) ==
LOC: WOUND 05:28
DX: Z09 Encounter for follow-up examination after completed treatment for conditions other than malignant neoplasm (principal); I70.221 Atherosclerosis of native arteries of extremities with rest pain, right leg; G62.9 Polyneuropathy, unspecified
CPT/HCPCS: G0463

== ENCOUNTER 2025-03-28 12:27 | Inpatient (IN) | payer OTHER ==
[~2025-03-28] VITALS: Ht 160 cm; Wt 65.0 kg
[2025-03-28 13:19] LABS: BASOPHILS ABSOLUTE AUTO 0.03 K/mm3 (0.00-0.23); BASOPHILS PERCENT AUTO 0 % (0-2); EOSINOPHILS ABSOLUTE AUTO 0.08 K/mm3 (0.00-0.68); EOSINOPHILS PERCENT AUTO 1 % (0-6); Hematocrit 32.7 % (33.0-51.0); Hemoglobin 10.7 g/dL (11.5-16.0); IMMATURE GRAN ABSOLUTE AUTO 0.09 K/mm3 (0.00-0.10); IMMATURE GRAN PERCENT AUTO 1 % (0-1); LYMPHOCYTES ABSOLUTE AUTO 1.01 K/mm3 (0.84-5.20); LYMPHOCYTES PERCENT AUTO 14 % (21-46); MONOCYTES ABSOLUTE AUTO 0.73 K/mm3 (0.16-1.47); MONOCYTES PERCENT AUTO 10 % (4-13); Mean Corpuscular HGB 29.5 pg (26.0-34.0); Mean Corpuscular HGB Conc 32.7 g/dL (31.5-36.5); Mean Corpuscular Volume 90 fL (80-100); NEUTROPHILS ABSOLUTE AUTO 5.15 K/mm3 (1.96-9.15); NEUTROPHILS PERCENT AUTO 73 % (41-73); RDW Coefficient Variation 13.9 % (11.7-14.2); RDW Standard Deviation 45.1 fL (35.1-46.3); Red Blood Cell Count 3.63 M/mm3 (3.80-5.20); White Blood Cell Count 7.09 K/mm3 (4.00-11.30)
[2025-03-28 13:28] LABS: Albumin, Blood 3.7 g/dL (3.4-5.0); Bilirubin, Total 0.9 mg/dL (0.1-1.0); Bun/Creatinine Ratio 18.9 (12.0-20.0); Calcium, Blood 10.1 mg/dL (8.5-10.1); Creatinine, Blood 1.27 mg/dL (0.40-1.00); Globulin, Blood 3.6 g/dL (2.2-4.0); Potassium, Blood 4.7 mmol/L (3.5-5.5); Total Protein, Blood 7.3 g/dL (6.4-8.2)
[2025-03-28 13:48] LABS: Mean Platelet Volume 10.6 fL (9.1-12.4); Platelet Count 215 K/mm3 (150-400)
[2025-03-28] MEDS ORDERED: Aspirin 325 MG Tab PO ONE (15:00)
[2025-03-28] MEDS ORDERED: Furosemide 10 MG / ML 2ML Vial IV ONE ×2 (15:00→16:50)
[2025-03-28] MEDS ORDERED: Metoprolol Tartrate 1 MG/ML 5 ML VIAL IV ONE ×2 (16:50→18:00)
[2025-03-28] MEDS ORDERED: Digoxin 0.25 MG/ML 2ML Amp IV ONE (16:55)
[2025-03-28] MEDS ORDERED: Metoprolol Tartrate 1 MG/ML 5 ML VIAL IV PRN (17:30)
[2025-03-28] MEDS ORDERED: ALPRAZolam 0.25 MG Tab PO PRN (17:35)
[2025-03-28] MEDS ORDERED: Albuterol 2.5 MG/3 ML VIAL INH PRN (17:35)
[2025-03-28] MEDS ORDERED: Ondansetron HCl 2 MG / ML 2ML Vial IV PRN (17:35)
[2025-03-28] MEDS ORDERED: HYDROcodone 5-APAP 325 TAB PO PRN (17:40)
[2025-03-28] MEDS ORDERED: Metoprolol Tartrate 25 MG Tab PO SCH (21:00)
[2025-03-28] MEDS ORDERED: Gabapentin 300 MG Cap PO SCH (21:00)
[2025-03-28] MEDS ORDERED: Apixaban 5 MG Tab PO SCH (21:00)
[2025-03-28 21:25] VITALS: BP 127/93
[2025-03-28] MEDS ORDERED: PROTONIX4010 PO ×2 (22:46)
[2025-03-28 23:53] VITALS: BP 145/74
[2025-03-29] MEDS ORDERED: ALPRAZolam 1 MG Tab PO ONE (00:40)
[2025-03-29 04:31] VITALS: BP 116/61
[2025-03-29 04:48] LABS: Hematocrit 30.1 % (33.0-51.0); Hemoglobin 9.6 g/dL (11.5-16.0); Mean Corpuscular HGB 29.4 pg (26.0-34.0); Mean Corpuscular HGB Conc 31.9 g/dL (31.5-36.5); Mean Corpuscular Volume 92 fL (80-100); Mean Platelet Volume 10.1 fL (9.1-12.4); Platelet Count 214 K/mm3 (150-400); RDW Coefficient Variation 13.5 % (11.7-14.2); Red Blood Cell Count 3.27 M/mm3 (3.80-5.20); White Blood Cell Count 6.14 K/mm3 (4.00-11.30)
[2025-03-29 05:17] LABS: Bun/Creatinine Ratio 21.6 (12.0-20.0); Calcium, Blood 9.7 mg/dL (8.5-10.1); Creatinine, Blood 1.25 mg/dL (0.40-1.00); Magnesium, Blood 2.1 mg/dL (1.6-2.4); Potassium, Blood 3.3 mmol/L (3.5-5.5)
[2025-03-29] MEDS ORDERED: Omeprazole 20 MG CapCR PO SCH (06:00)
--- NOTE | 2025-03-29 06:58 | NUR ---
PT ARRIVED TO UNIT AT APPROXIMATELY 2105, ABLE TO TRANSFER TO BED WITH ASSIST. HOME IMPROVEMENT ADVISOR APPLIED, PT REPORTED SHORTNESS OF BREATH AND WAS NOTED TO BE PURSED LIP BREATHING. ALERT AND ORIENTED X4, NO CHEST PAIN REPORTED. TELEMETRY SHOWED AFIB RVR IN 150S-160S, PER PERSONAL FITNESS TRAINER IV ACCESS IN R AC, BUT UPON ASSESSMENT PT ARRIVED WITH NO IV. PT STATED IT "FELL OUT" PRIOR TO TRANSFER. PO METOPROLOL AND ELIQUIS ADMINISTERED TO PT, WHILE 2ND RN OBTAINED IV ACCESS, 2L O2 VIA NC APPLIED. IV ACCESS THEN OBTAINED AND IVP METOPROLOL ADMINISTERED, BP STABLE, VSS. SHORTLY AFTER PT WAS ABLE TO CONVERT TO SINUS RHYTHM AT 2208, REMAINS IN SINUS RHYTHM EVEN WHEN AMBULATING TO BATHROOM. NO COMPLAINTS OF SHORTNESS OF BREATH. ANXIETY MEDICATION ADMINISTERED, TOLERATED WELL, NO ADVERSE EFFECTS. VSS, RRR AND UNLABORED, NO COMPLAINTS OF CHEST PAIN OR SHORTNESS OF BREATH SINCE. OF 701, PT STILL IN SINUS RHYTHM. RESTING COMFORTABLY, NO CONCERNS AT THIS TIME.
[2025-03-29 07:31] VITALS: BP 130/59
[2025-03-29] MEDS ORDERED: Potassium Chloride 20 MEQ/15 ML UDC PO ONE (07:40)
[2025-03-29] MEDS ORDERED: Ipratropium Bromide INH 0.02% 0.5 mg/2.5ML Vial INH SCH (08:25)
[2025-03-29] MEDS ORDERED: Atorvastatin 10 MG Tab PO SCH (09:00)
[2025-03-29] MEDS ORDERED: Cholecalciferol 1000 Unit Tablet (=25MCG) PO SCH (09:00)
[2025-03-29] MEDS ORDERED: Potassium Chloride 20 MEQ TabCR PO ONE (09:00)
[2025-03-29] MEDS ORDERED: Losartan Potassium 25 MG Tab PO SCH (09:00)
[2025-03-29] MEDS ORDERED: Loratadine 10 MG Tab PO SCH (09:00)
[2025-03-29] MEDS ORDERED: Furosemide 10 MG/ML 4ML Vial IV SCH (09:00)
[2025-03-29] MEDS ORDERED: Multivitamins 1 Tab PO SCH (09:00)
[2025-03-29] MEDS ORDERED: Aspirin 81 MG Chew PO SCH (09:00)
[2025-03-29] MEDS ORDERED: Atorvastatin 40 MG Tab PO SCH (09:00)
[2025-03-29] MEDS ORDERED: Empagliflozin 10 MG TAB PO SCH (09:00)
[2025-03-29] MEDS ORDERED: ALUMINUM HYDROX PO PRN (09:15)
[2025-03-29] MEDS ORDERED: MAGNESIUM CARB PO PRN (09:15)
[2025-03-29] MEDS ORDERED: ALPRAZolam 0.5 MG Tab PO ONE (10:10)
--- NOTE | 2025-03-29 10:45 | NUR ---
929 LATE ENTRY THIS RN NOTIFIED BY PARTNERSHIP DEVELOPMENT MANAGER THAT PT WAS EMOTIONAL AND ON THE TOILET THIS RN TO ASSESS PT NOTED TO STILL BE ON THE TOILET AND APPEARED TO BE CRYING AND HYEPERVENTILATING. THIS RN INSTRUCTED PT TO SLOW HER BREATHIG AND WALKED HER THROUGH DEEP BREATHING EXERCISE. PT ABLE TO SLOW BREATHING DOWN. PT STATED MULTPILE TIMES "I CAN'T DO THIS ANYMORE." PT REPORTD THAT SHE LUBRICATION THAT WAS PUT N HER DURING THE ECHO "BROUGHT BACK SOME VERY UNPLEASNT MEMORIES." PT VSS AT THIS TIME. NOTIFIED AND SHE WAS ROUNDING AND ENTERED THE ROOM. ONE TIME XANAX ORDERED AND GIVEN.
--- NOTE | 2025-03-29 10:54 | NUR ---
THIS RN CNTACTED MD ON 4O MEQ POTASSIUM THAT WAS ORDERED. MD NOTIFIED OF PT RECIEVING 60 MEQ POTASSIUM ALREADY THIS MORNING AND THAT THE PT ALSO RECIEVED LASIX. MD INSTRUCTED THIS RN TO GO AHEAD AND GIVE THE ADDITIONAL POTASSIUM.
[2025-03-29 12:08] VITALS: BP 115/65
--- NOTE | 2025-03-29 14:05 | NUR ---
BEDSIDE RN REPORTED THAT PATIENT WAS WANTING TO REVIEW CODE STATUS AND POSSIBLY FILL OUT A POLST. PATIENT WAS SITTING AT THE EDGE OF THE BED WHEN I ARRIVED. SHE REPORTED THAT SHE WOULD LIKE TO HAVE THAT DISCUSSION BUT IS NOT FEELING WELL ENOUGH TO PARTICIPATE IN THE CONVERSATION AT THIS TIME. PROVIDED LIGHT THARAPUTIC CONVERSATION.
[2025-03-29] MEDS ORDERED: ALPRAZolam 0.25 MG Tab PO PRN (15:00)
[2025-03-29 15:33] VITALS: BP 105/61
--- NOTE | 2025-03-29 18:12 | NUR ---
SHIFT SUMMARY PT A&O X 4 WITH PERIODIC ANXIETY AND FLUCTUATIONS IN EMOTIONS. ABLE TO MAKE NEEDS KNOWN. PT HAS RESISTED OR DECLINED CARE MULTIPLE TIMES BUT CHANGED HER MIND SHORTLY AFTER AND ACCEPTED. ONE EXPERIENCE OF SEVERE ANXIETY DESCRIBED BY PATIENT AN ANXIETY ATTACK. PT LATER STATED THAT HER ANXIETY HAD BEEN ACUTELY EXACERBATED BY SOMETHING THAT REMINDED HER OF PREVIOUS CHILDHOOD SEXUAL TRAUMA, MD AWARE, TREATED PER EMAR. PALLIATIVE CARE CONSULTED TO ASSIST PT WITH A POLST. PT DESCRIBED MILD PRESSURE IN CHEST THAT ACCOMPANIED PERIODIC SOB. VITALS STABLE. PT AMBULATES WITH 1 ASST. AND WALKER TO BR.
--- NOTE | 2025-03-29 18:26 | NUR ---
REVIEW OF STUDENT RN ASSESSMNTS/CHARTING THIS RN OVERSAW AND REVIEWED STUDENT RN'S ASSESSMENTS AND CHARTING. THIS RN AGREES WITH STUDENT RN 'S CHARTING.
[2025-03-29 21:25] VITALS: BP 135/63
[2025-03-30] MEDS ORDERED: Ipratropium Bromide INH 0.02% 0.5 mg/2.5ML Vial INH PRN (01:25)
--- NOTE | 2025-03-30 03:55 | NUR ---
PT IS PLEASANT OVERNIGHT, HEART RATE REMAINS IN SINUS RHYTHM, WHILE ASLEEP HEART RATE STAYS IN MID 50S. PT DENIES SOB/CHEST PAIN/DID REQUEST PRN PAIN MED FOR GENERALIZED PAIN (REFER TO JAN) AND LATER IN SHIFT RECEIVED PRN XANAX FOR ANXIETY (REFER TO JAN). TOLERATED BOTH MEDICATIONS WELL, NO ADVERSE EFFECTS NOTED. PT CONTINENT, ON ROOM AIR WHILE AWAKE, WHEN ASLEEP PT PLACED ON 2L VIA NC TO [place] O2 GREATER THAN 92%. PT COMPLIANT WITH CARE, EDUCATED AGAIN ON ELIQUIS AND METOPROLOL. VSS, RRR AND UNLABORED, CALLS APPROPRIATELY, CONVERSES WELL. NO CONCERNS AT THIS TIME. TO NOTE - PT DOES BECOME "WINDED" WHEN AMBULATING WITH RN SBA TO BATHROOM, DOES NOT DE SAT OR REQUIRE SUPPLEMENTAL O2 WHEN WALKING.
[2025-03-30 05:52] VITALS: BP 146/50
[2025-03-30] MEDS ORDERED: Pantoprazole Sodium 20 MG Tab PO SCH (06:00)
[2025-03-30 06:15] LABS: BASOPHILS ABSOLUTE AUTO 0.02 K/mm3 (0.00-0.23); BASOPHILS PERCENT AUTO 1 % (0-2); EOSINOPHILS ABSOLUTE AUTO 0.12 K/mm3 (0.00-0.68); EOSINOPHILS PERCENT AUTO 3 % (0-6); Hemoglobin 9.8 g/dL (11.5-16.0); IMMATURE GRAN ABSOLUTE AUTO 0.04 K/mm3 (0.00-0.10); IMMATURE GRAN PERCENT AUTO 1 % (0-1); LYMPHOCYTES ABSOLUTE AUTO 1.46 K/mm3 (0.84-5.20); LYMPHOCYTES PERCENT AUTO 36 % (21-46); MONOCYTES ABSOLUTE AUTO 0.43 K/mm3 (0.16-1.47); MONOCYTES PERCENT AUTO 11 % (4-13); Mean Corpuscular HGB Conc 31.6 g/dL (31.5-36.5); Mean Corpuscular Volume 92 fL (80-100); Mean Platelet Volume 10.3 fL (9.1-12.4); NEUTROPHILS ABSOLUTE AUTO 2.04 K/mm3 (1.96-9.15); NEUTROPHILS PERCENT AUTO 50 % (41-73); Platelet Count 231 K/mm3 (150-400); RDW Coefficient Variation 13.5 % (11.7-14.2); RDW Standard Deviation 45.7 fL (35.1-46.3); Red Blood Cell Count 3.38 M/mm3 (3.80-5.20); White Blood Cell Count 4.11 K/mm3 (4.00-11.30)
[2025-03-30 06:39] LABS: Albumin, Blood 3.4 g/dL (3.4-5.0); Bilirubin, Total 0.3 mg/dL (0.1-1.0); Bun/Creatinine Ratio 26.1 (12.0-20.0); Creatinine, Blood 1.65 mg/dL (0.40-1.00); Globulin, Blood 3.4 g/dL (2.2-4.0); Total Protein, Blood 6.8 g/dL (6.4-8.2)
[2025-03-30 07:42] VITALS: BP 153/66
[2025-03-30] MEDS ORDERED: Furosemide 40 MG Tab PO SCH (09:00)
[2025-03-30] MEDS ORDERED: JARDIANCE10 MG PO ×2 (11:41)
[2025-03-30] MEDS ORDERED: METO25 PO (11:41)
--- NOTE | 2025-03-30 13:25 | NUR ---
Discharge note. Pt was discharged home. Pt reported that she was very ready to get out of the hospital. Significant amount of education given on discharge about meds, condition, follow up appointments. All belongings were taken with the Pt. Pt was escorted to the door by staff. Pt is driving herself home. Pt reports that she feels capable of going to the pharmacy and getting home safely. Pt reports she has a lot of friend support at home. Pt is able to make needs known, call light is within reach.
== END 2025-03-30 13:40 | disposition home or self-care (01) | DRG 291 ==
LOC: ER 12:27 → ERHOLD 12:28 → PCU 12:28
PROVIDERS: Nurse Practitioner Acute Care; Physician Assistant; ADMIT Student in an Organized Health Care Education/Training Program
DX: I13.0 Hypertensive heart and chronic kidney disease with heart failure and stage 1 through stage 4 chronic kidney disease, or unspecified chronic kidney disease (principal); I50.33 Acute on chronic diastolic (congestive) heart failure; J96.01 Acute respiratory failure with hypoxia; I24.89 Other forms of acute ischemic heart disease; T82.598A Other mechanical complication of other cardiac and vascular devices and implants, initial encounter; C34.32 Malignant neoplasm of lower lobe, left bronchus or lung; F41.9 Anxiety disorder, unspecified; I25.10 Atherosclerotic heart disease of native coronary artery without angina pectoris; N18.30 Chronic kidney disease, stage 3 unspecified; J44.9 Chronic obstructive pulmonary disease, unspecified; K21.9 Gastro-esophageal reflux disease without esophagitis; E87.6 Hypokalemia; I48.0 Paroxysmal atrial fibrillation; I73.9 Peripheral vascular disease, unspecified; G62.9 Polyneuropathy, unspecified; Y71.2 Prosthetic and other implants, materials and accessory cardiovascular devices associated with adverse incidents; I08.3 Combined rheumatic disorders of mitral, aortic and tricuspid valves; F40.240 Claustrophobia; F51.04 Psychophysiologic insomnia; F43.10 Post-traumatic stress disorder, unspecified; Z86.73 Personal history of transient ischemic attack (TIA), and cerebral infarction without residual deficits; Z85.118 Personal history of other malignant neoplasm of bronchus and lung; Z90.2 Acquired absence of lung [part of]; Z88.8 Allergy status to other drugs, medicaments and biological substances; Z88.2 Allergy status to sulfonamides; Z88.0 Allergy status to penicillin; Z79.01 Long term (current) use of anticoagulants; Z95.820 Peripheral vascular angioplasty status with implants and grafts; Z86.711 Personal history of pulmonary embolism; Z79.82 Long term (current) use of aspirin; Z79.02 Long term (current) use of antithrombotics/antiplatelets; Z87.891 Personal history of nicotine dependence
CPT/HCPCS: 36415; 71046; 71260; 80048; 80053; 83690; 83735; 83880; 84443; 84484; 85025; 85027; 93005; 93010; 93308; 93321; 94640; 94664; 94760; 94762; 96374-59; 96375-59; 96376; 96376-59; 99285-25; A9270; G0378; J1160; J1938; J2470; Q9967